=== PATIENT | female | born 1940 | race Caucasian/White ===

== ENCOUNTER → 2016-09-27 | Outpatient (CLI) | payer BC, OTHER ==
[~2016-09-27] MED LIST: ADVAIR INHALER INH; ALBU18002 PO; ALFALFA PO; AMLO-114 PO; ASCA500 PO; ASPEC81 PO; ASPI-435 PO; ASTNS; ATOR10TA88 PO; B-COCAP2 PO; BECL1AER5 NAE; CADUET PO; CALC-214 PO; CALCIUM/MAG PO; CAYENNE PEPPER PO; CHOL20009 PO; CLC/300 PO; CLR10 PO; ERGO1CAP35 PO; FISHOIL PO; GARL10007 PO; GARLIC PO; GLUCOSAMINE CHOND PO; HERB LAX PO; HYDC25 PO; HYZ/50125; LECITHIN PO; LIDO5DIS10 TD; LOSA100T65 PO; METO50TA7 PO; MULT-188 PO; MULT-506 PO; NITR0.4S UT; NITROQUICK SL; NXM/40 PO; PAPAYA ENZYME PO; POLY1DRO2 OP; PRAS1CAP3 PO; PRED10TA PO; PROB1CAP41 PO; PROVENTIL INHALER INH; PTDOPS OP; QVRINH80 INH; SNG10 PO; TPRSR100 PO; VERAMYST NASAL SPRAY NAE; VITA400C15 PO; VITACAP26 PO; ZINC PO; [UNRECOGNIZED DRUG - OTHER] PO; [UNRECOGNIZED DRUG - OTHER] PO; [UNRECOGNIZED DRUG - OTHER] PO; [UNRECOGNIZED DRUG - OTHER] PO
--- NOTE | 2016-09-27 11:40 | DIAGNOSTIC IMAGING REPORT ---
LUMBAR SPINE 5 VIEWS HISTORY: M81.0 [id number] Vitamin D [id number] Mechanical low COMPARISON: None. FINDINGS: There is no fracture. There is 4 mm of anterolisthesis of L4 on L5. Mild disc space narrowing at L2-L3, L3-L4, and L4-L5. Moderate facet degenerative changes within the lower lumbar spine. The sacrum appears intact. The bones are osteopenic. IMPRESSION: 1. No acute fracture within the lumbar spine. 2. Diffuse osteopenia. 3. Degenerative changes as described above. 4. Grade I anterolisthesis of L4 and L5. Electronically signed by: Azar Mensah M.D. 09/27/2016 11:38 AM Dictated Date/Time: 09/27/2016 11:35 AM
== END | disposition home or self-care (01) ==
LOC: C.RAD1850 10:34
PROVIDERS: ATTEND Internal Medicine Rheumatology
DX: M81.0 Age-related osteoporosis without current pathological fracture (principal); E55.9 Vitamin D deficiency, unspecified; M54.5 Low back pain; M85.88 Other specified disorders of bone density and structure, other site; M43.16 Spondylolisthesis, lumbar region

== ENCOUNTER → 2016-10-30 | Outpatient (CLI) | payer BC, OTHER ==
--- NOTE | 2016-10-30 16:45 | MAMMOGRAPHY REPORT ---
BILATERAL DIGITAL SCREENING MAMMOGRAM WITH CAD: 10/30/2016 CLINICAL HISTORY: Routine screening. Patient has no complaints. TECHNIQUE: Current study was also evaluated with a Computer Aided Detection (CAD) system. Bilatera l CC and MLO views were obtained. COMPARISON: Comparison is made to exams dated: 10/26/2015 mammogram, 10/04/2014 mammogram, 10/01/2013 mammogram, 09/30/2012 mammogram, 09/24/2011 mammogram, and 08/28/2010 mammogram - [facility]. BREAST COMPOSITION: There are scattered areas of fibroglandular density in both breasts. FINDINGS: No suspicious masses, calcifications, or areas of architectural distortion are noted in e ither breast. There has been no significant interval change compared to prior exams. Scattered bila teral benign appearing calcifications are not significantly changed. Small benign-appearing right b reast masses are also stable. IMPRESSION: ACR BI-RADS CATEGORY 2: BENIGN There is no mammographic evidence of malignancy. A 1 year screening mammogram is recommended. The p atient will receive written notification of the results. Approximately 10% of breast cancers are not detected with mammography. A negative mammographic repor t should not delay biopsy if a clinically suggestive mass is present. Whit Dupont M.D. /:10/30/2016 13:55:03 Utility Porter: Reyna Montgomery, [facility] letter sent: Normal 1/2 BI-RADS Code: ACR BI-RADS Category 2: Benign
== END | disposition home or self-care (01) ==
LOC: C.MAMM 12:41
PROVIDERS: ATTEND Obstetrics & Gynecology
DX: Z12.31 Encounter for screening mammogram for malignant neoplasm of breast (principal)

== ENCOUNTER → 2016-10-30 | Outpatient (CLI) | payer BC, OTHER | END | disposition home or self-care (01) | LOC: C.MAMM 12:40 | PROVIDERS: ATTEND Internal Medicine Rheumatology | DX: Z12.31 Encounter for screening mammogram for malignant neoplasm of breast (principal); M81.0 Age-related osteoporosis without current pathological fracture; E55.9 Vitamin D deficiency, unspecified; M54.5 Low back pain; Z78.0 Asymptomatic menopausal state ==

== ENCOUNTER → 2016-11-09 | Outpatient (CLI) | payer BC, OTHER | END | disposition home or self-care (01) | LOC: C.LABBC 09:23 | PROVIDERS: ATTEND Family Medicine | DX: M81.0 Age-related osteoporosis without current pathological fracture (principal); E55.9 Vitamin D deficiency, unspecified; M54.5 Low back pain ==

== ENCOUNTER 2017-03-06 05:37 | Inpatient (IN) | payer BC, OTHER ==
[~2017-03-06] VITALS: Ht 157.5 cm; Wt 81.9 kg
[~2017-03-06 05:37] MED LIST changes: -ALBU18002 PO; -AMLO-114 PO; -ASPI-435 PO; -ATOR10TA88 PO; -BECL1AER5 NAE; -CALC-214 PO; -CHOL20009 PO; -CLC/300 PO; -GARL10007 PO; -LOSA100T65 PO; -MULT-188 PO; -MULT-506 PO; -NITR0.4S UT; -NXM/40 PO; -POLY1DRO2 OP; -PRAS1CAP3 PO; -PROB1CAP41 PO; -PTDOPS OP; -TPRSR100 PO; -VITACAP26 PO
[2017-03-06 06:15] LABS: HEMATOCRIT 35.1 % (37-47); MEAN CELL VOLUME 91.9 fL (80-100); MEAN CORPUSCULAR HEMOGLOBIN 30.9 pg (25-34); MEAN CORPUSCULAR HGB CONC 33.6 g/dl (32-36); MEAN PLATELET VOLUME 10.4 fL (7.4-10.4); PLATELET COUNT 270 K/uL (130-400); RED BLOOD COUNT 3.82 M/uL (4.2-5.4); WHITE BLOOD COUNT 6.28 K/uL (4.8-10.8)
[2017-03-06] MEDS ORDERED: AMLO-114 PO (06:18)
[2017-03-06] MEDS ORDERED: ASPI-435 PO (06:18)
[2017-03-06] MEDS ORDERED: CALC-214 PO (06:21)
[2017-03-06] MEDS ORDERED: ATOR10TA82 PO (06:21)
[2017-03-06 06:22] LABS: BUN/CREATININE RATIO 32.5 (10-20); CREATININE 0.71 mg/dl (0.60-1.20); POTASSIUM 4.1 mmol/L (3.5-5.1)
[2017-03-06] MEDS ORDERED: CLC/300 PO (06:23)
[2017-03-06] MEDS ORDERED: GARL10007 PO (06:25)
[2017-03-06] MEDS ORDERED: PRAS1CAP3 PO (06:25)
[2017-03-06] MEDS ORDERED: LOSA100T65 PO (06:25)
[2017-03-06] MEDS ORDERED: MULT-506 PO (06:26)
[2017-03-06] MEDS ORDERED: TPRSR100 PO (06:26)
[2017-03-06] MEDS ORDERED: NITR0.4S UT (06:28)
[2017-03-06] MEDS ORDERED: NXM/40 PO (06:28)
[2017-03-06] MEDS ORDERED: ALBU18002 PO (06:30)
[2017-03-06] MEDS ORDERED: MULT-188 PO (06:30)
[2017-03-06] MEDS ORDERED: PTDOPS OP (06:30)
[2017-03-06] MEDS ORDERED: PROB1CAP41 PO (06:33)
[2017-03-06] MEDS ORDERED: POLY1DRO2 OP (06:33)
[2017-03-06] MEDS ORDERED: BECL1AER5 NAE (06:33)
[2017-03-06] MEDS ORDERED: VITACAP26 PO (06:33)
[2017-03-06] MEDS ORDERED: CHOL20009 PO (06:33)
--- NOTE | 2017-03-06 06:37 | EMERGENCY ROOM VISIT NOTE ---
History Report prepared by Nadia: Rustam Young Under the Supervision of: Dr. Rimma Shea D.O. First contact with patient: 05:41 Chief Complaint: RECTAL BLEEDING Stated Complaint: RECTAL BLEED Nursing Triage Summary: Pt reports having a colonoscopy one week prior. Pt reports having constipation problems and takes colax and herblax. Pt's physician Dr Figueroa instructed patient not to take the herblax because he had a patient with complications from that medication. Tonight patient had bright red blood in her stool. Then around 5am pt reports toilet was all bood and no stool. At that time patient reports feeling weak and diaphoretic. Denies pain. History of Present Illness The patient is a 76 year old female who presents to the Emergency Room with complaints of rectal bleeding occurring today. The patient noticed some blood in her stool earlier today which worsened over time. The patient had been having abdominal bloating for the past month. She also reports changes in stool size. She did not have any rectal bleeding at the time. About a week ago, the patient had the colonoscopy which showed a small polyp, diverticulosis, a blood vessel was cauterized. This week, she started eating foods such as wheat, and chocolate covered raisins. Today, she started noticing some dark blood with her stool and she had an increased frequency of bowel movements. About an hour ago, the patient started only passing blood from her rectum. She is unsure about any blood clots. She also reports being pale, weak, and diaphoretic. She noted the rectal bleeding would worsen with lying down and would resolve with sitting up. The patient denies fevers, chills, abdominal pain, or any other complaints. Source of History: patient Onset: today Position: other (global) Quality: other (rectal bleeding) Timing: other (persistent) Associated Symptoms: + diaphoresis, + weakness, No fevers, No chills, No abdominal pain Review of Systems See HPI for pertinent positives & negatives. A total of 10 systems reviewed and were otherwise negative. Past Medical & Surgical Medical Problems: (1) Low back pain Surgical Problems: (1) Hx of colonoscopy Family History Diabetes mellitus Social History Smoking Status: Never Smoker Marital Status: Occupation Status: retired Current/Historical Medications Scheduled Amlodipine (Norvasc), 10 MG PO DAILY Aspirin (Aspirin 81), 81 MG PO DAILY Atorvastatin (Lipitor), 10 MG PO HS Beclomethasone Dipropionate (N (Qnasl), 1 SPRY TAMARA DAILY Calcium W/ Magnesium (Calcium & Magnesium), 1,200 MG PO DAILY Cholecalciferol (Vitamin D), 6,000 UNIT PO DAILY Esomeprazole Magnesium (Nexium), 40 MG PO DAILY Garlic (Garlic), 5,000 MG PO UD Losartan Potassium (Cozaar), 100 MG PO DAILY Metoprolol Succinate (Toprol Xl), 100 MG PO DAILY Multiple Vitamins W/ Minerals (Ocuvite), 2 TABS PO DAILY Multivitamin (Multivitamin), 2 TAB PO DAILY Olopatadine Hydrochloride (Pataday), 1 DROPS OP DAILY Polyethylene Glycol-Propylene (Systane Gel), OP UD Prasterone (Dhea) (Dhea), 10 MG PO DAILY Probiotic Product (Probiotic Daily), 1 CAP PO DAILY Vitamins C & E (Vitamin C), 2 CAP PO TID Scheduled PRN Albuterol Sulfate (Proair Respiclick), 2 SPRAYS PO QID PRN for SOB/Wheezing Clindamycin HCl (Clindamycin HCl), 2 CAP PO UD PRN for 1hr prior to dental appt Nitroglycerin (Nitrostat), 0.4 MG UT UD PRN for Chest Pain Allergies Coded Allergies: Vitamin E (Verified Allergy, Intermediate, BURNING RASH WITH TOPICAL, 2/5/ 10) Clavulanic Acid (Verified Adverse Reaction, Mild, DIARRHEA, 2/5/10) Penicillins (Verified Adverse Reaction, Mild, DIARRHEA, 2/5/10) Alendronate (Verified Adverse Reaction, Unknown, NAUSEA;DIZZY;HEADACHE, 2/ 5/10) Physical Exam Vital Signs Date Time Temp Pulse Resp B/P (MAP) Pulse Ox O2 Delivery O2 Flow Rate FiO2 03/06/17 07:30 96 Room Air 03/06/17 07:28 69 17 121/81 96 Room Air 03/06/17 05:52 68 03/06/17 05:43 36.5 69 17 125/71 95 Room Air Physical Exam HEENT: Head - normocephalic and atraumatic Pupils are equal, round, and reactive to light. Extraocular eye muscles are intact, and sclera are anicteric. Nose - moist nasal mucosa without discharge. Mouth - moist buccal mucosa. Oropharynx is nonerythematous and there is no tonsillar exudate or edema noted. Neck: Supple; no JVD, nuchal rigidity, cervical lymphadenopathy, or auscultated bruits. Heart: Regular rate and rhythm. There is a normal S1 and S2 with no murmurs, clicks, or gallops appreciated. Lungs: Clear to auscultation bilaterally with no wheezes, rales, or rhonchi. Abdomen: Soft, completely nontender, nondistended, with good bowel sounds. There are no palpable pulsatile masses or hepatosplenomegaly. There is no guarding, rigidity, or rebound noted. Rectal: Dark colored melena. No obvious hemorrhoids Extremities: No evidence of cyanosis, clubbing, or edema. There are easily palpable peripheral pulses. Skin: warm and dry with good turgor and no rashes. Medical Decision & Procedures Laboratory Results Laboratory results per my review. Medications Administered Medications (Trade) Dose Ordered Sig/Mehul Route Start Time Stop Time Status Last Admin Dose Admin Sodium Chloride 1,000 ml @ 100 mls/hr Q10H IV 03/06/17 07:44 04/05/17 07:43 03/07/17 13:29 100 MLS/HR ED Course 0541: Past medical records reviewed. The patient was evaluated in room A10. A complete history and physical exam was performed. An IV lock was initiated and labs were drawn as above. 0636: I reevaluated the patient. She did not have a bowel movement yet. 0650: Upon reevaluation, I discussed findings and results with her. The patient was able to access her previous lab results. On January 27, she had a hemoglobin of 14.4. She verbalized agreement of the treatment plan. The patient will be evaluated for further management and care. Her hemoglobin has dropped by 3 g. 0704: [facility] the [facility] Medical Decision The patient presents to the Emergency Room with complaints of rectal bleeding. Differential diagnosis includes but is not limited to Upper GI bleeding, lower GI bleeding, hemorrhoidal bleeding. Her labs showed BUN 23, creatinine 0.7, glucose 138, white blood cell count of 6.2, hemoglobin 11.8. I attest that I have personally reviewed the patient's current medication list. Patient was found to have normal blood pressure on screening and does not require follow-up. The patient presents to the emergency department with rectal bleeding. She recently underwent a colonoscopy with which showed a polyp and a blood vessel which required cauterization. The patient developed sudden acute onset of rectal bleeding tonight. Her hemoglobin has dropped by 3 g in the past 1 month. The patient is hemodynamically stable at this time. [facility] for further management. Consults Time Called: [phone] Consulting Physician: [facility] Returned Call: [phone] I discussed the patient's case with Dr. Haq, from [facility]. Impression Primary Impression: GI bleed Additional Impression: Anemia Scribe Attestation The scribe's documentation has been prepared under my direction and personally reviewed by me in its entirety. I confirm that the note above accurately reflects all work, treatment, procedures, and medical decision making performed by me. Departure Information Dispostion Being Evaluated By Hospitalist Referrals Mario Figueroa M.D. (PCP) Patient Instructions My [facility] Problem Qualifiers
[2017-03-06 07:30] VITALS: O2SAT 96; Ht 157.5 cm; Wt 81.9 kg
[2017-03-06] MEDS ORDERED: SODIUM CHLORIDE 0.45% 1000ML 1,000 ML IV SCH (07:44)
[2017-03-06] MEDS ORDERED: MAGNESIUM HYDROXIDE SUSP 30 ML UDC PO PRN (07:45)
[2017-03-06] MEDS ORDERED: ALUMINUM/MAGNESIUM/SIMETH (MAALOX MAX) 30 ML UDC PO PRN (07:45)
[2017-03-06] MEDS ORDERED: HydrALAZINE HCL 20 MG/ML VIAL IV. PRN (07:45)
[2017-03-06] MEDS ORDERED: ONDANSETRON INJ 2 MG/ML 2 ML VIAL IV PRN (07:45)
[2017-03-06] MEDS ORDERED: ACETAMINOPHEN 325 MG TAB PO PRN (07:45)
[2017-03-06] MEDS ORDERED: NITROGLYCERIN 0.4 MG SL PER TAB CHARGE SL PRN (07:45)
[2017-03-06] MEDS ORDERED: POLYETHYLENE (MIRALAX) 17 GM PACK PO PRN (07:45)
--- NOTE | 2017-03-06 08:09 | History and Physical ---
History & Physical Date & Time of Service: Mar 06, 2017 at 07:53 Chief Complaint: Rectal Bleed Primary Care Physician: Mario Figueroa M.D. History of Present Illness Source: patient, family (- at bedside), clinic records, hospital records Patient is a pleasant 76 y/o female, with PMHx of HTN, hyperlipidemia, CAD s/p BRIAN to LAD in 2006, and GERD, who presented to the ED because of rectal bleeding /melena that began last evening. According to the patient, last evening before bed she noticed bright red blood in her rectum. Shortly after she went to the bathroom and noticed black/red stool and bright red blood. The patient had multiple BMs throughout the night which progressively had less stool and more obvious blood. Last episode of noticeable blood was around 530 this AM prior to arriving to the ED via EMS. She admits to lightheadedness/dizziness, weakness, and diaphoresis as the night progressed. Patient's last meal was 03/05 around 2130. She denies having anything like this in the past. Patient had a colonoscopy by Dr. Shafer on 02/26 due to bloating and changing in stool shape/ consistency. She was found to have a small polyp (has not heard of pathology), blood vessel cauterization, and diverticular disease. She admits to GERD and states she had an EGD in 2011. She is to take Nexium over the counter, but does not take it. Patient denies any fever, chills, sweats, vision changes, CP, palpitations, edema, SOB, wheezing, cough, abdominal pain, nausea, vomiting, diarrhea, urinary symptoms, numbness/tingling, muscle/joint pain, anxiety/ depression, or new skin discoloration/changes. Past Medical/Surgical History Medical Problems: 1. HTN 2. Hyperlipidemia 3. CAD s/p BRIAN to LAD in 2006 4. GERD 5. Diverticular disease Surgical Problems: 1. Colonoscopy 02/26/17 2. EGD in 2011 3. Cataract surgery 4. D&C x3 due to miscarriages 5. Left total knee replacement 6. Tonsillectomy Family History Diabetes mellitus Social History Smoking Status: Never Smoker Marital Status: Occupational Status: retired Immunizations History of Influenza Vaccine: Yes History of Tetanus Vaccine?: Yes History of Pneumococcal: Yes History of Hepatitis B Vaccine: No Multi-Drug Resistant Organisms History of MDRO: No Allergies Coded Allergies: Vitamin E (Verified Allergy, Intermediate, BURNING RASH WITH TOPICAL, ) Clavulanic Acid (Verified Adverse Reaction, Mild, DIARRHEA, 10/21/09) Penicillins (Verified Adverse Reaction, Mild, DIARRHEA, 10/21/09) Alendronic Acid (Verified Adverse Reaction, Unknown, NAUSEA;DIZZY;HEADACHE , 10/21/09) Uncoded Allergies: BETALACTAMASEIN (Adverse Reaction, Mild, DIARRHEA, 10/21/09) Home Medications Scheduled Amlodipine (Norvasc), 10 MG PO DAILY Aspirin (Aspirin 81), 81 MG PO DAILY Atorvastatin (Lipitor), 10 MG PO HS Beclomethasone Dipropionate (N (Qnasl), 1 SPRY TAMARA DAILY Calcium W/ Magnesium (Calcium & Magnesium), 1,200 MG PO DAILY Cholecalciferol (Vitamin D), 6,000 UNIT PO DAILY Esomeprazole Magnesium (Nexium), 40 MG PO DAILY Garlic (Garlic), 5,000 MG PO UD Losartan Potassium (Cozaar), 100 MG PO DAILY Metoprolol Succinate (Toprol Xl), 100 MG PO DAILY Multiple Vitamins W/ Minerals (Ocuvite), 2 TABS PO DAILY Multivitamin (Multivitamin), 2 TAB PO DAILY Olopatadine Hydrochloride (Pataday), 1 DROPS OP DAILY Polyethylene Glycol-Propylene (Systane Gel), OP UD Prasterone (Dhea) (Dhea), 10 MG PO DAILY Probiotic Product (Probiotic Daily), 1 CAP PO DAILY Vitamins C & E (Vitamin C), 2 CAP PO TID Scheduled PRN Albuterol Sulfate (Proair Respiclick), 2 SPRAYS PO QID PRN for SOB/Wheezing Clindamycin HCl (Clindamycin HCl), 2 CAP PO UD PRN for 1hr prior to dental appt Nitroglycerin (Nitrostat), 0.4 MG UT UD PRN for Chest Pain Physical Exam Vital Signs Date Time Temp Pulse Resp B/P (MAP) Pulse Ox O2 Delivery O2 Flow Rate FiO2 03/06/17 07:28 69 17 121/81 96 Room Air 03/06/17 05:52 68 03/06/17 05:43 36.5 69 17 125/71 95 Room Air General Appearance: no apparent distress, + obese Head: normocephalic, atraumatic Eyes: normal inspection, PERRL ENT: hearing grossly normal Neck: supple Respiratory/Chest: lungs clear, no respiratory distress, no accessory muscle use Cardiovascular: regular rate, rhythm Abdomen/GI: normal bowel sounds, non tender, soft Extremities/Musculoskelatal: no calf tenderness, no pedal edema Neurologic/Psych: alert, normal mood/affect, oriented x 3 Skin: normal color, warm/dry, no rash Diagnostics Laboratory Results Results Past 24 Hours Test 03/06/17 05:55 Range/Units White Blood Count 6.28 4.8-10.8 K/uL Red Blood Count 3.82 4.2-5.4 M/uL Hemoglobin 11.8 12.0-16.0 g/dL Hematocrit 35.1 37-47 % Mean Corpuscular Volume 91.9 80-100 fL Mean Corpuscular Hemoglobin 30.9 25-34 pg Mean Corpuscular Hemoglobin Concent 33.6 32-36 g/dl RDW Standard Deviation 41.9 36.4-46.3 fL RDW Coefficient of Variation 12.4 11.5-14.5 % Platelet Count 270 130-400 K/uL Mean Platelet Volume 10.4 7.4-10.4 fL Sodium Level 142 136-145 mmol/L Potassium Level 4.1 3.5-5.1 mmol/L Chloride Level 110 98-107 mmol/L Carbon Dioxide Level 24 21-32 mmol/L Anion Gap 8.0 3-11 mmol/L Blood Urea Nitrogen 23 7-18 mg/dl Creatinine 0.71 0.60-1.20 mg/dl Est Creatinine Clear Calc Drug Dose 70.7 ml/min Estimated GFR () 97.3 Estimated GFR (Non- 83.9 BUN/Creatinine Ratio 32.5 10-20 Random Glucose 138 70-99 mg/dl Calcium Level 8.0 8.5-10.1 mg/dl Impression Assessment and Plan Patient is a pleasant 76 y/o female, with PMHx of HTN, hyperlipidemia, CAD s/p BRIAN to LAD in 2006, and GERD, who presented to the ED because of rectal bleeding /melena that begin last evening. Anemia, secondary to GI bleed: - Admit to tele for cardiac monitoring - Trend H&H q6 hrs- hgb at admission= 11.8 - IV Protonix BID - IV NSS @ 100 ml/hr - Type and screen - NPO - Consult GI, appreciate recommendations- patient follows w/ Dr. Shafer HTN: - Continue Amlodipine 5 mg and Losartan 100 mg daily - IV 10 mg Hydralazine PRN SBP >180 and DBP >100 while NPO Hyperlipidemia: Lipitor 10 mg HS CAD s/p BRIAN to LAD in 2006: - Continue Metoprolol 100 mg daily - Patient follows w/ Dr. Pérez GI Prophylaxis: Protonix, Maalox PRN, IV Zofran PRN, Colace and/or Milk of Mag PRN DVT Prophylaxis: TEDs/SCDs; chemical therapy contraindicated due to GI bleed Code Status: LEVEL I, FULL Dispo: From home, lives w/ - no discharge needs anticipated Level of Care Telemetry Resuscitation Status FULL RESUSCITATION VTE Prophylaxis VTE Risk Assessment Done? Y/N: Yes Risk Level: Moderate Given or contraindicated: T.E.D. Stockings, SCD's, Contraindicated
[2017-03-06] MEDS ORDERED: LOSARTAN POTASSIUM 50 MG TAB PO SCH (09:00)
[2017-03-06] MEDS ORDERED: METOPROLOL SUCC 50MG EXT REL TAB PO SCH (09:00)
[2017-03-06] MEDS ORDERED: AMLODIPINE BESYLATE 5 MG TAB PO SCH (09:00)
[2017-03-06] MEDS ORDERED: MULTIVITAMIN TAB PO SCH (09:00)
[2017-03-06] MEDS ORDERED: CEROVITE ADV FORMULA TAB PO SCH (09:00)
[2017-03-06 09:27] VITALS: O2SAT 97
[2017-03-06 09:35] VITALS: BP 154/80; PULSE 76; TEMP 36.6; O2SAT 97
[2017-03-06] MEDS: SODIUM CHLORIDE 0.9% 1000ML 1,000 ML IV SCH ×2 (10:21→19:31)
[2017-03-06] MEDS ORDERED: NURSING VERBAL MED ORDER ONE (10:30)
[2017-03-06 11:05] VITALS: BP 128/68; PULSE 66; TEMP 36.6; O2SAT 95
[2017-03-06] MEDS: PANTOprazole INJ 40 MG in SYRINGE 0 ML IV SCH ×2 (11:15→22:23)
[2017-03-06 13:14] LABS: HEMATOCRIT 35.3 % (37-47)
[2017-03-06 15:00] VITALS: BP 130/79; PULSE 79; TEMP 37; O2SAT 96
[2017-03-06 18:26] LABS: HEMATOCRIT 31.7 % (37-47)
[2017-03-06 20:10] VITALS: BP 121/57; PULSE 71; TEMP 36.4; O2SAT 95
[2017-03-06] MEDS: LOSARTAN POTASSIUM 50 MG TAB PO SCH (22:23)
[2017-03-06] MEDS: ATORVASTATIN 10 MG TAB PO SCH (22:24)
[2017-03-06] MEDS: CEROVITE ADV FORMULA TAB PO SCH (22:24)
[2017-03-06] MEDS: METOPROLOL SUCC 50MG EXT REL TAB PO SCH (22:25)
[2017-03-06] MEDS: AMLODIPINE BESYLATE 5 MG TAB PO SCH (22:25)
--- NOTE | 2017-03-06 22:25 | GASTROINTESTINAL CONSULTATION ---
DATE OF CONSULTATION: 03/06/2017 This is a GI consultation for hematochezia. HISTORY OF PRESENT ILLNESS: Mrs. Mota is a 76-year-old white female, who underwent colonoscopy on 02/26/2017 by me at [facility]. At that time, she had a nonbleeding AVM and underwent a bipolar cautery, a polyp which revealed a tubular adenoma, left-sided diverticulosis without diverticulitis. She did well up until last evening, at approximately 10:00 when she began to develop a sense of some mild cramping and stool mixed with blood. This continued through the night every 20-30 minutes, where the intensity of the bleeding became more evident, was bright red blood in nature and at one point stool could no longer be identified. This continued up until approximately 5:00 a.m. this morning, at which point she contacted EMS and was presented to the Emergency Room for evaluation of bleeding. The patient denies any fever or chills, had no changes in her bowel habits prior to last evening and has not had any bleeding since arriving at the Emergency Room. At a point of time, at home, she was feeling lightheaded, although did not pass out. LABORATORY STUDIES: On admission; show that her hemoglobin was 11.8 at 5:55 this morning and at approximately 1:00 p.m. this afternoon it was 11.6. Her white count was normal at 6.3 and platelets were normal at 270,000. Serum chemistry; BUN and creatinine were 23 and 0.7. Potassium was 4.1. PAST MEDICAL HISTORY: The patient denied any hematemesis, coffee-ground emesis or upper abdominal pain and has no prior history of peptic ulcer disease. She did use 1 Aleve tablet over the past week and takes a baby aspirin, but chronic or frequent use of NSAIDs is by way of ibuprofen or naproxen and is not reported. PAST MEDICAL HISTORY: Includes; hypertension, hyperlipidemia, coronary artery disease, GERD and diverticular disease. She had an upper endoscopy in 2011. Has had prior cataract surgery, total knee replacement on the left side and tonsillectomy. FAMILY HISTORY: Significant for diabetes. SOCIAL HISTORY: The patient denies tobacco or alcohol use. She is , retired and has children. REVIEW OF SYSTEMS: Otherwise noncontributory based on 14-point exam except for as mentioned above. There is no family history of colorectal cancer or inflammatory bowel disease. ALLERGIES: INCLUDE; VITAMIN E, CLAVULANIC ACID WHICH PRODUCES DIARRHEA, PENICILLIN AND ALENDRONIC ACID WHICH PRODUCES NAUSEA. HOME MEDICATIONS: Include; amlodipine, aspirin, atorvastatin, beclomethasone nasal spray, vitamin D, Nexium, garlic, losartan, Lopressor, MVI probiotic and vitamin C. PHYSICAL EXAMINATION: VITAL SIGNS: On admission her vital signs; afebrile at 36.5, blood pressure 125/71, respirations 17, pulse 69 and pulse ox 95% on room air. GENERAL: The patient is awake, alert and oriented x3, accompanied by her . The patient is resting comfortably in bed. HEENT: Sclerae are anicteric, conjunctiva moist. Oral mucosa is moist. HEART: Normal S1, S2. LUNGS: Clear to auscultation without rales, rhonchi or wheezes. ABDOMEN: There are no abdominal bruits or masses. I do not appreciate abdominal tenderness, rebound, guarding, evidence of shifting dullness or ascites. EXTREMITIES: Without clubbing, cyanosis or edema. RECTAL: Deferred at this time. Blood work as described above with a BUN and creatinine of 23 and 0.7. Potassium is 4.1. IMPRESSION: The patient with acute onset of bleeding that appears to be mostly bright red blood and intensified overnight, although since her presentation to the Emergency Room she has not had any further rectal bleeding or stool output. There is no abdominal pain. At the present time, her hemoglobin seems stable, although this needs to be watched carefully with hemoglobin every 12 hours. Empiric PPI is reasonable. We will observe stool output, her clinical presentation and vital signs. If her hemoglobin precipitously drops or if there is evidence of ongoing bloody output, then it may be prudent to begin a bowel prep with intentions to re-interrogate the colon. The differential for this includes unroofing of an eschar as it has been approximately 8 days since her arteriovenous malformation fulguration and polyp removal. In addition, diverticular bleeding or bleeding from the polypectomy site may also be possibilities. We will continue to follow with you. If bleeding occurs overnight, then we will plan for a bowel prep and plans for colonoscopy later on afternoon. All questions were answered. A clear liquid diet (non-red beverages) is reasonable as long as there is no abdominal pain or development of recurrent gastrointestinal bleeding at which point bowel prep may be necessary. All questions were answered. MTDD
[2017-03-07] VITALS (11 sets, daily range): BP systolic 112–148; BP diastolic 53–80; PULSE 62–98; TEMP 36.3–37.1; O2SAT 93–98
[2017-03-07] MEDS: SODIUM CHLORIDE 0.9% 1000ML 1,000 ML IV SCH ×3 (04:16→23:18)
[2017-03-07 07:35] LABS: HEMATOCRIT 31.3 % (37-47); MEAN CELL VOLUME 92.6 fL (80-100); MEAN CORPUSCULAR HEMOGLOBIN 30.8 pg (25-34); MEAN CORPUSCULAR HGB CONC 33.2 g/dl (32-36); MEAN PLATELET VOLUME 10.3 fL (7.4-10.4); PLATELET COUNT 253 K/uL (130-400); RED BLOOD COUNT 3.38 M/uL (4.2-5.4); WHITE BLOOD COUNT 5.43 K/uL (4.8-10.8)
[2017-03-07 08:29] LABS: CALCIUM 7.8 mg/dl (8.5-10.1); CREATININE 0.71 mg/dl (0.60-1.20); MAGNESIUM 2.5 mg/dl (1.8-2.4)
[2017-03-07] MEDS: PANTOprazole INJ 40 MG in SYRINGE 0 ML IV SCH ×2 (08:31→21:35)
[2017-03-07] MEDS ORDERED: LAVAGE SOLUTION 4000ML PO SCH (10:00)
--- NOTE | 2017-03-07 11:03 | Hospitalist Progress Note ---
Hospitalist Progress Note Date of Service Mar 07, 2017. Subjective Pt evaluation today including: conversation w/ patient, conversation w/ family (- at bedside), physical exam, chart review, lab review, review of inpatient medication list Voiding: no voiding problems, no incontinence Patient states she is feeling well. NPO pending colonoscopy today. Patient started passing large amounts of blood clots again this AM. +abdominal bloating. Patient denies any fever, chills, sweats, lightheadedness, dizziness, vision changes, CP, palpitations, edema, SOB, wheezing, cough, abdominal pain, nausea, vomiting, diarrhea, urinary symptoms, melena, numbness/tingling, weakness, muscle/joint pain, anxiety/depression, or new skin discoloration/changes. Medications Current Inpatient Medications Medications (Trade) Dose Ordered Sig/Mehul Route Start Time Stop Time Status Last Admin Dose Admin Sodium Chloride 1,000 ml @ 100 mls/hr Q10H IV 03/06/17 07:44 04/05/17 07:43 03/07/17 04:16 100 MLS/HR Acetaminophen (Tylenol Tab) 650 mg Q4H PRN PO 03/06/17 07:45 04/05/17 07:44 Al Hydrox/Mg Hydrox/Simethicone (Maalox Max Susp) 15 ml Q4H PRN PO 03/06/17 07:45 04/05/17 07:44 Magnesium Hydroxide (Milk Of Magnesia Susp) 30 ml Q12H PRN PO 03/06/17 07:45 04/05/17 07:44 Ondansetron HCl (Zofran Inj) 4 mg Q6H PRN IV 03/06/17 07:45 04/05/17 07:44 Nitroglycerin (Nitrostat Tab) 0.4 mg UD PRN SL 03/06/17 07:45 04/05/17 07:44 Polyethylene (Miralax Powder Packet) 17 gm DAILY PRN PO 03/06/17 07:45 04/05/17 07:44 Pantoprazole Sodium 40 mg/ Syringe 10 ml @ 5 mls/min DAILY@,21 IV 03/06/17 10:30 04/05/17 10:29 03/07/17 08:31 5 MLS/MIN Atorvastatin Calcium (Lipitor Tab) 10 mg HS PO 03/06/17 21:00 04/05/17 20:59 03/06/17 22:24 10 MG Hydralazine HCl (HydrALAZINE INJ) 10 mg Q6H PRN IV. 03/06/17 07:45 04/05/17 07:44 Multivitamins/ Minerals (Multivitamin W/ Minerals Tab) 2 tab HS PO 03/06/17 21:00 04/05/17 20:59 03/06/17 22:24 2 TAB Amlodipine Besylate (Norvasc Tab) 5 mg HS PO 03/06/17 21:00 04/05/17 20:59 03/06/17 22:25 5 MG Losartan Potassium (coZAAR TAB) 100 mg HS PO 03/06/17 21:00 04/05/17 20:59 03/06/17 22:23 100 MG Metoprolol Succinate (Toprol Xl Tab) 100 mg HS PO 03/06/17 21:00 04/05/17 20:59 03/06/17 22:25 100 MG Polyethylene Glycol/ Electrolytes (Golytely Soln) 16 dose 1000 PO 03/07/17 10:00 03/07/17 16:00 03/07/17 10:14 16 DOSE Objective Vital Signs Date Time Temp Pulse Resp B/P (MAP) Pulse Ox O2 Delivery O2 Flow Rate FiO2 03/07/17 10:14 Room Air 03/07/17 08:00 Room Air 03/07/17 07:02 37.0 66 18 145/78 (100) 95 Room Air 03/07/17 04:05 Room Air 03/07/17 03:47 36.9 62 18 136/74 (94) 97 Room Air 03/07/17 00:05 Room Air 03/07/17 00:00 36.5 69 19 140/72 (94) 94 Room Air 03/06/17 20:10 36.4 71 18 121/57 (78) 95 Room Air 03/06/17 20:00 Room Air 03/06/17 16:00 Room Air 03/06/17 15:00 37.0 79 18 130/79 (96) 96 Room Air 03/06/17 12:00 Room Air 03/06/17 11:05 36.6 66 18 128/68 (88) 95 Room Air Physical Exam General Appearance: no apparent distress, + obese Eyes: normal inspection, PERRL ENT: hearing grossly normal Neck: supple Respiratory/Chest: lungs clear, no respiratory distress, no accessory muscle use Cardiovascular: regular rate, rhythm Abdomen: normal bowel sounds, non tender, soft Extremities: no pedal edema, no calf tenderness Neurologic/Psychiatric: alert, normal mood/affect, oriented x 3 Skin: normal color, warm/dry, no rash Laboratory Results Last 24 Hours Test 03/06/17 12:43 03/06/17 18:05 03/07/17 07:03 Hemoglobin 11.6 g/dL 10.3 g/dL 10.4 g/dL Hematocrit 35.3 % 31.7 % 31.3 % White Blood Count 5.43 K/uL Red Blood Count 3.38 M/uL Mean Corpuscular Volume 92.6 fL Mean Corpuscular Hemoglobin 30.8 pg Mean Corpuscular Hemoglobin Concent 33.2 g/dl RDW Standard Deviation 43.1 fL RDW Coefficient of Variation 12.7 % Platelet Count 253 K/uL Mean Platelet Volume 10.3 fL Sodium Level 144 mmol/L Potassium Level 4.0 mmol/L Chloride Level 112 mmol/L Carbon Dioxide Level 26 mmol/L Anion Gap 6.0 mmol/L Blood Urea Nitrogen 13 mg/dl Creatinine 0.71 mg/dl Est Creatinine Clear Calc Drug Dose 69.8 ml/min Estimated GFR () 97.3 Estimated GFR (Non- 83.9 BUN/Creatinine Ratio 19.0 Random Glucose 104 mg/dl Calcium Level 7.8 mg/dl Magnesium Level 2.5 mg/dl Assessment and Plan Patient is a pleasant 76 y/o female, with PMHx of HTN, hyperlipidemia, CAD s/p BRIAN to LAD in 2006, and GERD, who presented to the ED because of rectal bleeding /melena that begin last evening. Anemia, secondary to GI bleed: - Admit to tele for cardiac monitoring- no acute events - Trend H&H- STABLE -- Will recheck H&H this afternoon prior to colonoscopy due to active bleeding restarting - IV Protonix BID - IV NSS @ 100 ml/hr- will d/c once resume diet - Type and screen - NPO- advance diet after colonoscopy per GI recommendations - Consult GI, appreciate recommendations- patient follows w/ Dr. Shafer -- Bowel prep and planning for colonoscopy/EGD this afternoon HTN: - Continue Amlodipine 5 mg and Losartan 100 mg daily - IV 10 mg Hydralazine PRN SBP >180 and DBP >100 while NPO Hyperlipidemia: Lipitor 10 mg HS CAD s/p BRIAN to LAD in 2006: - Continue Metoprolol 100 mg daily - Patient follows w/ Dr. Pérez GI Prophylaxis: Protonix, Maalox PRN, IV Zofran PRN, Colace and/or Milk of Mag PRN DVT Prophylaxis: TEDs/SCDs; chemical therapy contraindicated due to GI bleed Code Status: LEVEL I, FULL Dispo: Discharge to home once medically stable- likely within the next 1 day
[2017-03-07 12:38] LABS: HEMATOCRIT 29.6 % (37-47)
[2017-03-07] MEDS ORDERED: PROPOFOL IV EMULSION 10 MG/ML 20 ML VIAL IV ONE (15:13)
[2017-03-07] MEDS ORDERED: LIDOCAINE HCL 2% 2 ML VIAL (20MG/ML) ONE (15:13)
--- NOTE | 2017-03-07 15:27 | History & Physical Bridge Note ---
H&P Re-Evaluation Bridge Note: I have examined the patient, reviewed the History & Physical and in the interval since the performance of the History & Physical I have noted the following changes of clinical significance: pt developed BRBPR midmorning today. plan for colonoscopy and possible EGD No changes noted
--- NOTE | 2017-03-07 16:10 | GI REPORT ---
Procedure Date: 03/07/2017 3:22 PM Procedure: Colonoscopy Indications: Hematochezia Medicines: Propofol per Anesthesia Complications: No immediate complications. Estimated blood loss: None. Estimated Blood Loss: Estimated blood loss: none. Procedure: Pre-Anesthesia Assessment: - Prior to the procedure, a History and Physical was performed, and patient medications and allergies were reviewed. The patient's tolerance of previous anesthesia was also reviewed. The risks and benefits of the procedure and the sedation options and risks were discussed with the patient. All questions were answered, and informed consent was obtained. Prior Anticoagulants: The patient has taken no previous anticoagulant or antiplatelet agents. ASA Grade Assessment: II - A patient with mild systemic disease. After reviewing the risks and benefits, the patient was deemed in satisfactory condition to undergo the procedure. After I obtained informed consent, the scope was passed under direct vision. Throughout the procedure, the patient's blood pressure, pulse, and oxygen saturations were monitored continuously. The Scope was introduced through the anus and advanced to the terminal ileum, with identification of the appendiceal orifice and IC valve. The colonoscopy was performed without difficulty. The patient tolerated the procedure well. The quality of the bowel preparation was good. Findings: The perianal and digital rectal examinations were normal. Pertinent negatives include normal sphincter tone, no palpable rectal lesions and no anal lesion or abnormality was detected. A localized area of moderately congested and ulcerated mucosa was found in the cecum reflecting prior AVM/cautery site from february 26.. For hemostasis, four hemostatic clips were successfully placed (MR conditional). There was no bleeding during, and at the end, of the procedure. A diffuse area of moderate melanosis was found in the entire colon. The exam was otherwise without abnormality. The terminal ileum appeared normal. No blood seen in TI therfore EGD not necessary. Source of bleeding is most likley from post AVM cautery site in cecum. Small non bleeding visible vessl seen that was successfully clipped. Impression: - Congested and ulcerated mucosa in the cecum. Clips (MR conditional) were placed. - Melanosis in the colon. - The examination was otherwise normal. - The examined portion of the ileum was normal. - No specimens collected. Recommendation: - Advance diet as tolerated. - Continue present medications. - Check hemoglobin daily. MD Dom Castro MD 03/07/2017 4:10:11 PM This report has been signed electronically. Note Initiated On: 03/07/2017 3:22 PM I attest to the content of the Intraoperative Record and orders documented therein, exceptions below
--- NOTE | 2017-03-07 16:32 | Anesthesiology Progress Note ---
Anesthesia Post Op Note Date & Time Mar 07, 2017 at 16:32 Vital Signs Pain Intensity: 0.0 Vital Signs Past 12 Hours Date Time Temp Pulse Resp B/P (MAP) Pulse Ox O2 Delivery O2 Flow Rate FiO2 03/07/17 16:11 69 16 131/64 (86) 98 Room Air 03/07/17 15:56 70 16 121/57 (78) 98 Room Air 03/07/17 14:57 37.3 73 16 120/56 (77) 96 Room Air 03/07/17 14:43 36.8 92 18 117/58 (77) 94 Room Air 03/07/17 12:00 Room Air 03/07/17 11:18 36.7 68 18 133/72 (92) 98 Room Air 03/07/17 10:14 36.8 92 18 117/58 94 Room Air 03/07/17 08:00 Room Air 03/07/17 07:02 37.0 66 18 145/78 (100) 95 Room Air Notes Mental Status: alert / awake / arousable, participated in evaluation Pt Amnestic to Procedure: Yes Nausea / Vomiting: adequately controlled Pain: adequately controlled Airway Patency, RR, SpO2: stable & adequate BP & HR: stable & adequate Hydration State: stable & adequate Anesthetic Complications: no major complications apparent Pt doing well.
[2017-03-07] MEDS: LOSARTAN POTASSIUM 50 MG TAB PO SCH (21:35)
[2017-03-07] MEDS: AMLODIPINE BESYLATE 5 MG TAB PO SCH (21:36)
[2017-03-07] MEDS: METOPROLOL SUCC 50MG EXT REL TAB PO SCH (21:36)
[2017-03-07] MEDS: CEROVITE ADV FORMULA TAB PO SCH (21:36)
[2017-03-07] MEDS: ATORVASTATIN 10 MG TAB PO SCH (21:36)
[2017-03-08 03:50] VITALS: BP 104/62; PULSE 67; TEMP 36.9; O2SAT 97
[2017-03-08 05:59] LABS: HEMATOCRIT 26.8 % (37-47); MEAN CELL VOLUME 92.1 fL (80-100); MEAN CORPUSCULAR HEMOGLOBIN 30.9 pg (25-34); MEAN CORPUSCULAR HGB CONC 33.6 g/dl (32-36); MEAN PLATELET VOLUME 10.1 fL (7.4-10.4); PLATELET COUNT 235 K/uL (130-400); RED BLOOD COUNT 2.91 M/uL (4.2-5.4); WHITE BLOOD COUNT 7.98 K/uL (4.8-10.8)
[2017-03-08 06:37] LABS: BUN/CREATININE RATIO 13.4 (10-20); CREATININE 0.62 mg/dl (0.60-1.20); POTASSIUM 3.6 mmol/L (3.5-5.1)
[2017-03-08 07:02] VITALS: BP 121/65; PULSE 70; TEMP 36.8; O2SAT 98
[2017-03-08] MEDS: PANTOprazole INJ 40 MG in SYRINGE 0 ML IV SCH (08:26)
[2017-03-08] MEDS ORDERED: NURSING VERBAL MED ORDER ONE (08:45)
[2017-03-08] MEDS: PANTOprazole SOD 40 MG TAB PO SCH ×2 (09:22→20:59)
--- NOTE | 2017-03-08 10:27 | Hospitalist Progress Note ---
Hospitalist Progress Note Date of Service Mar 08, 2017. Subjective Pt evaluation today including: conversation w/ patient, conversation w/ family (- at bedside ), physical exam, chart review, lab review, review of inpatient medication list Voiding: no voiding problems, no incontinence Patient states she is feeling well this AM. Denies passing blood since colonoscopy. Clear liquid diet this AM- advance to full for lunch. States Dr. Shafer will not be doing an EGD at this time. Discussed hgb of 9.0 and would like to watch overnight- patient is in agreement Patient denies any fever, chills, sweats, lightheadedness, dizziness, vision changes, CP, palpitations, edema, SOB, wheezing, cough, abdominal pain, nausea, vomiting, diarrhea, urinary symptoms, melena, numbness/tingling, weakness, muscle/joint pain, anxiety/depression, active bleeding, or new skin discoloration/changes. Medications Current Inpatient Medications Medications (Trade) Dose Ordered Sig/Mehul Route Start Time Stop Time Status Last Admin Dose Admin Acetaminophen (Tylenol Tab) 650 mg Q4H PRN PO 03/06/17 07:45 04/05/17 07:44 Al Hydrox/Mg Hydrox/Simethicone (Maalox Max Susp) 15 ml Q4H PRN PO 03/06/17 07:45 04/05/17 07:44 Magnesium Hydroxide (Milk Of Magnesia Susp) 30 ml Q12H PRN PO 03/06/17 07:45 04/05/17 07:44 Ondansetron HCl (Zofran Inj) 4 mg Q6H PRN IV 03/06/17 07:45 04/05/17 07:44 Nitroglycerin (Nitrostat Tab) 0.4 mg UD PRN SL 03/06/17 07:45 04/05/17 07:44 Polyethylene (Miralax Powder Packet) 17 gm DAILY PRN PO 03/06/17 07:45 04/05/17 07:44 Atorvastatin Calcium (Lipitor Tab) 10 mg HS PO 03/06/17 21:00 04/05/17 20:59 03/07/17 21:36 10 MG Hydralazine HCl (HydrALAZINE INJ) 10 mg Q6H PRN IV. 03/06/17 07:45 04/05/17 07:44 Multivitamins/ Minerals (Multivitamin W/ Minerals Tab) 2 tab HS PO 03/06/17 21:00 04/05/17 20:59 03/07/17 21:36 2 TAB Amlodipine Besylate (Norvasc Tab) 5 mg HS PO 03/06/17 21:00 04/05/17 20:59 03/07/17 21:36 5 MG Losartan Potassium (coZAAR TAB) 100 mg HS PO 03/06/17 21:00 04/05/17 20:59 03/07/17 21:35 100 MG Metoprolol Succinate (Toprol Xl Tab) 100 mg HS PO 03/06/17 21:00 04/05/17 20:59 03/07/17 21:36 100 MG Pantoprazole Sodium (Protonix Tab) 40 mg BID PO 03/08/17 09:00 04/07/17 08:59 03/08/17 09:22 40 MG Objective Vital Signs Date Time Temp Pulse Resp B/P (MAP) Pulse Ox O2 Delivery O2 Flow Rate FiO2 03/08/17 08:00 Room Air 03/08/17 07:02 36.8 70 18 121/65 (83) 98 Room Air 03/08/17 04:00 Room Air 03/08/17 03:50 36.9 67 18 104/62 (76) 97 Room Air 03/08/17 00:00 Room Air 03/07/17 23:40 37.1 98 18 112/53 (72) 93 Room Air 03/07/17 20:00 Room Air 03/07/17 19:43 37.1 79 16 148/73 (98) 96 Room Air 03/07/17 17:47 36.3 79 18 127/70 (89) 96 Room Air 03/07/17 17:16 36.6 75 18 127/77 (94) 97 Room Air 03/07/17 17:00 Room Air 03/07/17 16:46 36.7 70 18 130/80 (97) 97 Room Air 03/07/17 16:26 71 16 136/68 (90) 96 Room Air 03/07/17 16:11 69 16 131/64 (86) 98 Room Air 03/07/17 15:56 70 16 121/57 (78) 98 Room Air 03/07/17 14:57 37.3 73 16 120/56 (77) 96 Room Air 03/07/17 14:43 36.8 92 18 117/58 (77) 94 Room Air 03/07/17 12:00 Room Air 03/07/17 11:18 36.7 68 18 133/72 (92) 98 Room Air Physical Exam General Appearance: no apparent distress, + obese Eyes: normal inspection, PERRL ENT: hearing grossly normal Neck: supple Respiratory/Chest: lungs clear, no respiratory distress, no accessory muscle use Cardiovascular: regular rate, rhythm Abdomen: normal bowel sounds, non tender, soft Extremities: no pedal edema, no calf tenderness Neurologic/Psychiatric: alert, normal mood/affect, oriented x 3 Skin: normal color, warm/dry, no rash Laboratory Results Last 24 Hours Test 03/07/17 12:27 03/08/17 05:36 Hemoglobin 10.1 g/dL 9.0 g/dL Hematocrit 29.6 % 26.8 % White Blood Count 7.98 K/uL Red Blood Count 2.91 M/uL Mean Corpuscular Volume 92.1 fL Mean Corpuscular Hemoglobin 30.9 pg Mean Corpuscular Hemoglobin Concent 33.6 g/dl RDW Standard Deviation 43.0 fL RDW Coefficient of Variation 12.6 % Platelet Count 235 K/uL Mean Platelet Volume 10.1 fL Sodium Level 147 mmol/L Potassium Level 3.6 mmol/L Chloride Level 113 mmol/L Carbon Dioxide Level 26 mmol/L Anion Gap 8.0 mmol/L Blood Urea Nitrogen 8 mg/dl Creatinine 0.62 mg/dl Est Creatinine Clear Calc Drug Dose 80.1 ml/min Estimated GFR () 103.0 Estimated GFR (Non- 88.8 BUN/Creatinine Ratio 13.4 Random Glucose 95 mg/dl Calcium Level 8.0 mg/dl Assessment and Plan Patient is a pleasant 76 y/o female, with PMHx of HTN, hyperlipidemia, CAD s/p BRIAN to LAD in 2006, and GERD, who presented to the ED because of rectal bleeding /melena that begin last evening. Anemia, secondary to GI bleed: - Admit to tele for cardiac monitoring- no acute events -- Transfer to med/surg on 03/08 - Trend H&H- STABLE - IV Protonix BID- switch to PO BID on 03/08 - Treated w/ IV NSS @ 100 ml/hr while NPO - Type and screen - Consult GI, appreciate recommendations- patient follows w/ Dr. Shafer -- Bowel prep and planning for colonoscopy on 03/08 - Congested and ulcerated mucosa in the cecum. Clips (MR conditional) were placed. - Melanosis in the colon. - The examination was otherwise normal. - The examined portion of the ileum was normal. HTN: - Continue Amlodipine 5 mg and Losartan 100 mg daily - IV 10 mg Hydralazine PRN SBP >180 and DBP >100 while NPO Hyperlipidemia: Lipitor 10 mg HS CAD s/p BRIAN to LAD in 2006: - Continue Metoprolol 100 mg daily - Patient follows w/ Dr. Pérez GI Prophylaxis: Protonix, Maalox PRN, IV Zofran PRN, Colace and/or Milk of Mag PRN DVT Prophylaxis: TEDs/SCDs; chemical therapy contraindicated due to GI bleed Code Status: LEVEL I, FULL Dispo: Discharge to home once medically stable- likely tomorrow if tolerates diet and hgb stabilizes
[2017-03-08 11:44] VITALS: BP 145/75; PULSE 66; TEMP 36.8; O2SAT 97
--- NOTE | 2017-03-08 13:53 | PROGRESS NOTE ---
DATE: 03/08/2017 SUBJECTIVE: The patient has passed a small blood clot today but otherwise feels well and is taking food orally. OBJECTIVE: Her blood pressure is 145/75, pulse 66. Hemoglobin is 9, which is down from 11.6 two days ago. She has no abdominal pain at this time. 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 Shafer clipped with 4 Hemoclips yesterday. The patient will be observed overnight to make sure she has no further active bleeding and that her hemoglobin remains stable and if so, then she should be able to be discharged tomorrow.
[2017-03-08 15:11] VITALS: BP 124/70; PULSE 70; TEMP 36.6; O2SAT 96
[2017-03-08 17:48] VITALS: BP 124/70; PULSE 70; TEMP 36.6; O2SAT 96
[2017-03-08] MEDS: LOSARTAN POTASSIUM 50 MG TAB PO SCH (20:58)
[2017-03-08] MEDS: CEROVITE ADV FORMULA TAB PO SCH (20:59)
[2017-03-08] MEDS: METOPROLOL SUCC 50MG EXT REL TAB PO SCH (20:59)
[2017-03-08] MEDS: ATORVASTATIN 10 MG TAB PO SCH (20:59)
[2017-03-08] MEDS: AMLODIPINE BESYLATE 5 MG TAB PO SCH (21:00)
[2017-03-09 00:19] VITALS: BP 124/67; PULSE 64; TEMP 36.9; O2SAT 96
[2017-03-09 06:40] VITALS: BP 129/67; PULSE 83; TEMP 36.6; O2SAT 95
[2017-03-09 07:05] LABS: HEMATOCRIT 28.3 % (37-47); MEAN CELL VOLUME 91.3 fL (80-100); MEAN CORPUSCULAR HEMOGLOBIN 30.6 pg (25-34); MEAN CORPUSCULAR HGB CONC 33.6 g/dl (32-36); PLATELET COUNT 270 K/uL (130-400); WHITE BLOOD COUNT 7.26 K/uL (4.8-10.8)
[2017-03-09 07:38] LABS: BUN/CREATININE RATIO 11.4 (10-20); CALCIUM 8.8 mg/dl (8.5-10.1); CREATININE 0.81 mg/dl (0.60-1.20); POTASSIUM 3.5 mmol/L (3.5-5.1)
[2017-03-09] MEDS: PANTOprazole SOD 40 MG TAB PO SCH (07:44)
[2017-03-09 08:46] VITALS: BP 129/67; PULSE 83; TEMP 36.6; O2SAT 95
--- NOTE | 2017-03-09 08:52 | Discharge Instructions ---
Discharge Instructions Date of Service Mar 09, 2017. Admission Reason for Admission: Anemia, Gi Bleed Discharge Discharge Diagnosis / Problem: Gastrointestinal bleed, acute blood loss anemia Discharge Goals Goal(s): Decrease discomfort, Improve function, Diagnostic testing, Therapeutic intervention Activity Recommendations Activity Limitations: resume your previous activity (as tolerated) . Instructions / Follow-Up Instructions / Follow-Up You were admitted to the hospital after presenting with rectal bleeding. You were also found to have anemia, presumably secondary to the blood loss. A colonoscopy was performed on 03/[address] Shafer which revealed with source of bleeding. This area was clipped to stop the bleeding. Your blood counts have been stabilizing and are now starting to improve. As you have had no recurrence of the bleeding and are able to tolerate a regular diet, you are now medically stable for discharge. Medications: *STOP taking aspirin for now until you are able to follow up with your primary care provider and have your blood counts checked again. You may resume when okay with your primary care provider. *Continue your other home medications as prescribed. Follow up: *Follow up with your primary care provider in 1 week regarding your hospital stay. You will also need a follow up blood test called a complete blood count ( CBC) in 1 week to ensure that your blood counts and anemia are improving. Please seek medical attention if you experience fevers, chills, sweats, lightheadedness/dizziness, loss of consciousness, chest pain, shortness of breath, nausea, vomiting, abdominal pain, rectal bleeding, bloody stools, dark/ tarry stools, or increased weakness and fatigue. Current Hospital Diet Patient's current hospital diet: Regular Diet Discharge Diet Recommended Diet: Regular Diet Procedures Procedures Performed: Colonoscopy Pending Studies Studies pending at discharge: no Medical Emergencies . Who to Call and When: Medical Emergencies: If at any time you feel your situation is an emergency, please call 911 immediately. . Non-Emergent Contact Non-Emergency issues call your: Primary Care Provider Call Non-Emergent contact if: you have a fever, you have any medication questions . Past History Medical & Surgical History: (1) GI bleed (2) Anemia . "Provider Documentation" section prepared by Yumiko Brown. . VTE Core Measure Inpt VTE Proph given/why not?: T.E.D. Stockings, SCD's, Contraindicated
--- NOTE | 2017-03-09 12:50 | Discharge Summary ---
Discharge Summary Date of Service Mar 09, 2017. Discharge Summary Admission Date: Mar 06, 2017 at 07:53 Discharge Date: Mar 09, 2017 Discharge Disposition: Home Principal Diagnosis: GI bleed, acute blood loss anemia Problems/Secondary Diagnoses: HTN Hyperlipidemia CAD s/p BRIAN to LAD in 2006 GERD Immunizations: Have You Had Influenza Vaccine: Yes History of Tetanus Vaccine?: Yes History of Pneumococcal: Yes History of Hepatitis B Vaccine: No Procedures: Patient: CONG SILVA Admit Date: 03/06/1706/21/17 Med Rec: [id number] Acct ID: [id number] [~ rep ct labl] Page 2of 2 p: [~ rep prt dt last] [~ rep prt tm last] [~ rep ct labl] Page 1of 1 p: [~ rep prt dt last] [~ rep prt tm last] GI REPORT [place], [place] Patient: CONG SILVA Admit Date: 03/06/1706/21/17 Med Rec: [id number] Att Phy: Quinton Haq MD, PhD Acct ID: [id number] Angie Phy: Mario Figueroa M.D. Date: 1940 Ref Phy: Self, Referred Fam Phy: Mario Figueroa M.D. Age: 76 Location: [facility] Sex: F Room/Bed: [facility] MNE:PROVATION REPORT #: [id number] CC: Dom Shafer M.D. Endcc: DICTATED BY: Dom Shafer M.D. Procedure Date: 03/07/2017 3:22 PM Procedure: Colonoscopy Indications: Hematochezia Medicines: Propofol per Anesthesia Complications: No immediate complications. Estimated blood loss: None. Estimated Blood Loss: Estimated blood loss: none. Procedure: Pre-Anesthesia Assessment: - Prior to the procedure, a History and Physical was performed, and patient medications and allergies were reviewed. The patient's tolerance of previous anesthesia was also reviewed. The risks and benefits of the procedure and the sedation options and risks were discussed with the patient. All questions were answered, and informed consent was obtained. Prior Anticoagulants: The patient has taken no previous anticoagulant or antiplatelet agents. ASA Grade Assessment: II - A patient with mild systemic disease. After reviewing the risks and benefits, the patient was deemed in satisfactory condition to undergo the procedure. After I obtained informed consent, the scope was passed under direct vision. Throughout the procedure, the patient's blood pressure, pulse, and oxygen saturations were monitored continuously. The Scope was introduced through the anus and advanced to the terminal ileum, with identification of the appendiceal orifice and IC valve. The colonoscopy was performed without difficulty. The patient tolerated the procedure well. The quality of the bowel preparation was good. Findings: The perianal and digital rectal examinations were normal. Pertinent negatives include normal sphincter tone, no palpable rectal lesions and no anal lesion or abnormality was detected. A localized area of moderately congested and ulcerated mucosa was found in the cecum reflecting prior AVM/cautery site from february 26.. For hemostasis, four hemostatic clips were successfully placed (MR conditional). There was no bleeding during, and at the end, of the procedure. A diffuse area of moderate melanosis was found in the entire colon. The exam was otherwise without abnormality. The terminal ileum appeared normal. No blood seen in TI therfore EGD not necessary. Source of bleeding is most likley from post AVM cautery site in cecum. Small non bleeding visible vessl seen that was successfully clipped. Impression: - Congested and ulcerated mucosa in the cecum. Clips (MR conditional) were placed. - Melanosis in the colon. - The examination was otherwise normal. - The examined portion of the ileum was normal. - No specimens collected. Recommendation: - Advance diet as tolerated. - Continue present medications. - Check hemoglobin daily. MD Dom Castro MD 03/07/2017 4:10:11 PM This report has been signed electronically. Note Initiated On: 03/07/2017 3:22 PM I attest to the content of the Intraoperative Record and orders documented therein, exceptions below Dictated: 03/07/17 1522 Signed: 03/07/17 1610 The status of this report is Signed. Draft = Not yet reviewed or approved by Medical Physician. Signed = Reviewed and approved by Medical Physician. <ConsultingPhyMNE>f pt consult dr rao</ConsultingPhyMNE> <FamilyPhyMNE>f pt fam dr rao</FamilyPhyMNE> <OtherPhyMNE>f pt other dr mne</OtherPhyMNE> < PrimaryPhyMNE>f pt prim care dr rao</PrimaryPhyMNE> <ReferringPhyMNE>f pt referring dr rao</ReferringPhyMNE> Consultations: GI--Dr. Shafer Medication Reconciliation Continued Medications: Albuterol Sulfate (Proair Respiclick) 108 Mcg/Act Aer 2 SPRAYS PO QID PRN for SOB/Wheezing Amlodipine (Norvasc) 10 Mg Tab 10 MG PO DAILY, TAB Atorvastatin (Lipitor) 10 Mg Tab 10 MG PO HS, TAB Beclomethasone Dipropionate (N (Qnasl) 80 Mcg/Act Aer 1 SPRY TAMARA DAILY, #8.7 GM 11 Refills Calcium W/ Magnesium (Calcium & Magnesium) 1 Tab Tab 1200 MG PO DAILY Cholecalciferol (Vitamin D) 2,000 Unit Tab 6000 UNIT PO DAILY Clindamycin HCl (Clindamycin HCl) 300 Mg Cap 2 CAP PO UD PRN for 1hr prior to dental appt Esomeprazole Magnesium (Nexium) 40 Mg Capcr 40 MG PO DAILY, CAP Garlic (Garlic) 1,000 Mg Cap 5000 MG PO UD take twice a day on saturdays & sundays Losartan Potassium (Cozaar) 100 Mg Tab 100 MG PO DAILY, TAB Metoprolol Succinate (Toprol Xl) 100 Mg Tabcr 100 MG PO DAILY, 3 Refills Multiple Vitamins W/ Minerals (Ocuvite) 1 Tab Tab 2 TABS PO DAILY Multivitamin (Multivitamin) Tab 2 TAB PO DAILY, TAB Nitroglycerin (Nitrostat) 0.4 Mg Sub 0.4 MG UT UD PRN for Chest Pain every 5 min up to 3 doses Olopatadine Hydrochloride (Pataday) 37 Drops/2.5 Ml Soln 1 DROPS OP DAILY, 3 Refills Polyethylene Glycol-Propylene (Systane Gel) 1 Sridhar Sridhar OP UD Prasterone (Dhea) (Dhea) 10 Mg Cap 10 MG PO DAILY Probiotic Product (Probiotic Daily) 1 Cap Cap 1 CAP PO DAILY Vitamins C & E (Vitamin C) 1 Cap Cap 2 CAP PO TID Discontinued Medications: Aspirin (Aspirin 81) 81 Mg Tab 81 MG PO DAILY Referrals At Discharge Follow up Referrals: Family Practice Referral - Within 1 Week with Mario Figueroa M.D. Discharge Exam Patient reports feeling well. She denies any hematochezia or melena. She denies lightheadedness/dizziness, shortness of breath, chest pain, palpitations and diaphoresis and is eager to return home. The patient denies fevers, chills , sweats, chest pain, palpitations, claudication, cough, wheezing, shortness of breath, nausea, vomiting, abdominal pain, dysuria, hematuria, urinary retention , paralysis, weakness, numbness and tingling. Review of Systems: Constitutional: No fever, No chills, No sweats, No weakness, No fatigue Eyes: No worsening of vision, No eye pain, No diplopia ENT: No hearing loss, No sore throat, No trouble swallowing Respiratory: No cough, No wheezing, No shortness of breath Cardiovascular: No chest pain, No claudication, No palpitations Abdomen: No pain, No nausea, No vomiting, No GI bleeding Musculoskeletal: No joint pain, No muscle pain, No calf pain Genitourinary - Female: No dysuria, No urinary retention, No hematuria Neurologic: No paralysis, No weakness, No numbness/tingling Integumentary: No rash, No itch, No color change Physical Exam: General Appearance: WD/WN, no apparent distress, + obese Eyes: normal inspection, PERRL, EOMI ENT: normal ENT inspection, hearing grossly normal, pharynx normal Neck: supple, no JVD, trachea midline Respiratory/Chest: lungs clear, normal breath sounds, no respiratory distress Cardiovascular: regular rate, rhythm, no gallop, no murmur Abdomen / GI: normal bowel sounds, non tender, soft Extremities: normal inspection, no calf tenderness, no pedal edema Neurologic/Psychiatric: alert, normal mood/affect, oriented x 3 Skin: normal color, warm/dry, no rash Hospital Course Admission History of Present Illness per Flori Martinez's complete H&P 03/06: Patient is a pleasant 76 y/o female, with PMHx of HTN, hyperlipidemia, CAD s/p BRIAN to LAD in 2006, and GERD, who presented to the ED because of rectal bleeding /melena that began last evening. According to the patient, last evening before bed she noticed bright red blood in her rectum. Shortly after she went to the bathroom and noticed black/red stool and bright red blood. The patient had multiple BMs throughout the night which progressively had less stool and more obvious blood. Last episode of noticeable blood was around 530 this AM prior to arriving to the ED via EMS. She admits to lightheadedness/dizziness, weakness, and diaphoresis as the night progressed. Patient's last meal was 03/05 around 0. She denies having anything like this in the past. Patient had a colonoscopy by Dr. Shafer on 02/26 due to bloating and changing in stool shape/ consistency. She was found to have a small polyp (has not heard of pathology), blood vessel cauterization, and diverticular disease. She admits to GERD and states she had an EGD in 2011. She is to take Nexium over the counter, but does not take it. Patient denies any fever, chills, sweats, vision changes, CP, palpitations, edema, SOB, wheezing, cough, abdominal pain, nausea, vomiting, diarrhea, urinary symptoms, numbness/tingling, muscle/joint pain, anxiety/ depression, or new skin discoloration/changes. 76 y/o female, with a history of HTN, HLD, CAD s/p BRIAN to LAD (2006), and GERD who presented to the ED on 03/06 with rectal bleeding/melena beginning last evening prior to arrival. Acute lower GI bleed--resolved - Admitted to tele for cardiac monitoring. No acute events on tele. Transferred to med/surg on 03/08 - IV Protonix BID- switch to PO BID on 03/08. Continue home Nexium on discharge. - Treated w/ IV NSS @ 100 ml/hr while NPO - Type and screen. No blood given during stay. - Consult GI, appreciate recommendations- patient follows w/ Dr. Shafer -- Bowel prep and planning for colonoscopy on 03/07 - Congested and ulcerated mucosa in the cecum. Clips (MR conditional) were placed. - Melanosis in the colon. - The examination was otherwise normal. - The examined portion of the ileum was normal.\ Acute blood loss anemia--improving - Trend H&H: STABLE. Hgb improving after colonoscopy at time of discharge. F/ u CBC as outpatient in 1 week with PCP. Instructed to hold ASA until ok with PCP HTN--stable - Continue Amlodipine 5 mg PO qd and Losartan 100 mg PO qd - IV 10 mg Hydralazine PRN SBP >180 and DBP >100 while NPO Hyperlipidemia -Continue Lipitor 10 mg PO qhs CAD s/p BRIAN to LAD in 2006 - Continue Metoprolol 100 mg PO qd - Hold ASA as above - Patient follows w/ Dr. Pérez GI Prophylaxis - Protonix - Maalox PRN - IV Zofran PRN - Colace and/or Milk of Mag PRN DVT Prophylaxis -Hold chemical prophylaxis due to bleed -Herman zavala/Amparo Code Status -Level I, FULL RESUSCITATION STATUS Dispo -Patient observed after colonoscopy to ensure no more active bleeding -Clear for discharge if Hgb remains stable per GI. Hgb improved on 03/09, discharge to home Total Time Spent: Greater than 30 minutes This includes examination of the patient, discharge planning, medication reconciliation, and communication with other providers. Discharge Instructions Please refer to the electronic Patient Visit Report (Discharge Instructions) for additional information. Additional Copies To Mario Figueroa M.D.
== END 2017-03-09 10:05 | disposition home or self-care (01) | DRG 982 ==
LOC: EDBD 05:37 → C.EDA 05:38 → C.MED 07:53 → ENRESERV 08:54 → C.MED 03-07 12:24 → C.MS4W 03-08 17:38
PROVIDERS: ADMIT Hospitalist; ATTEND Hospitalist
PROC: 0DQ Gastrointestinal System, Repair (ICD-10-PCS; principal; 2017-03-07 14:52)
DX: Q27.33 Arteriovenous malformation of digestive system vessel (principal); K92.2 Gastrointestinal hemorrhage, unspecified; D62 Acute posthemorrhagic anemia; K63.89 Other specified diseases of intestine; I10 Essential (primary) hypertension; E78.5 Hyperlipidemia, unspecified; I25.10 Atherosclerotic heart disease of native coronary artery without angina pectoris; K21.9 Gastro-esophageal reflux disease without esophagitis; Z79.82 Long term (current) use of aspirin; Z79.899 Other long term (current) drug therapy; Z95.5 Presence of coronary angioplasty implant and graft

== ENCOUNTER → 2017-11-01 | Outpatient (CLI) | payer BC, OTHER ==
[~2017-11-01] MED LIST changes: -ADVAIR INHALER INH; +ALBU18002 PO; -ALFALFA PO; +AMLO-114 PO; -ASCA500 PO; -ASPEC81 PO; -ASTNS; +ATOR10TA82 PO; -B-COCAP2 PO; +BECL1AER5 NAE; -CADUET PO; +CALC-214 PO; -CALCIUM/MAG PO; -CAYENNE PEPPER PO; +CHOL20009 PO; +CLC/300 PO; -CLR10 PO; -ERGO1CAP35 PO; -FISHOIL PO; +GARL10007 PO; -GARLIC PO; -GLUCOSAMINE CHOND PO; -HERB LAX PO; -HYDC25 PO; -HYZ/50125; -LECITHIN PO; -LIDO5DIS10 TD; +LOSA100T65 PO; -METO50TA7 PO; +MULT-188 PO; +MULT-506 PO; +NITR0.4S UT; -NITROQUICK SL; +NXM/40 PO; -PAPAYA ENZYME PO; +POLY1DRO2 OP; +PRAS1CAP3 PO; -PRED10TA PO; +PROB1CAP41 PO; -PROVENTIL INHALER INH; +PTDOPS OP; -QVRINH80 INH; -SNG10 PO; +TPRSR100 PO; -VERAMYST NASAL SPRAY NAE; -VITA400C15 PO; +VITACAP26 PO; -ZINC PO; -[UNRECOGNIZED DRUG - OTHER] PO; -[UNRECOGNIZED DRUG - OTHER] PO; -[UNRECOGNIZED DRUG - OTHER] PO; -[UNRECOGNIZED DRUG - OTHER] PO
--- NOTE | 2017-11-01 14:57 | MAMMOGRAPHY REPORT ---
BILATERAL DIGITAL SCREENING MAMMOGRAM TOMOSYNTHESIS WITH CAD: 11/01/2017 CLINICAL HISTORY: Routine screening. Patient has no complaints. TECHNIQUE: Breast tomosynthesis in addition to standard 2D mammography was performed. Current study was also evaluated with a Computer Aided Detection (CAD) system. COMPARISON: Comparison is made to exams dated: 10/30/2016 mammogram, 10/26/2015 mammogram, 10/04/2014 m ammogram, 10/01/2013 mammogram, 09/30/2012 mammogram, and 09/24/2011 mammogram - [facility]. BREAST COMPOSITION: There are scattered areas of fibroglandular density in both breasts. FINDINGS: No suspicious masses, calcifications, or areas of architectural distortion are noted in ei ther breast. There has been no significant interval change compared to prior exams. Scattered bilate ral benign appearing calcifications are not significantly changed. Small benign-appearing right jose st masses are also stable. IMPRESSION: ACR BI-RADS CATEGORY 2: BENIGN There is no mammographic evidence of malignancy. A 1 year screening mammogram is recommended. The pa tient will receive written notification of the results. Approximately 10% of breast cancers are not detected with mammography. A negative mammographic report should not delay biopsy if a clinically suggestive mass is present. Whit Dupont M.D. /:11/01/2017 12:13:30 Vat Washer: Li MALIN(Roanld)(Matt), [facility] letter sent: Normal 1/2 BI-RADS Code: ACR BI-RADS Category 2: Benign
== END | disposition home or self-care (01) ==
LOC: C.MAMM 10:46
PROVIDERS: ATTEND Obstetrics & Gynecology
DX: Z12.31 Encounter for screening mammogram for malignant neoplasm of breast (principal)

== ENCOUNTER → 2017-11-11 | Outpatient (CLI) | payer BC, OTHER | END | disposition home or self-care (01) | LOC: C.RDSM 13:10 | PROVIDERS: ATTEND Physical Medicine & Rehabilitation Sports Medicine | DX: M17.11 Unilateral primary osteoarthritis, right knee (principal) ==

== ENCOUNTER → 2017-12-03 | Outpatient (CLI) | payer BC, OTHER ==
[~2017-12-03] MED LIST changes: -ALBU18002 PO; +AMLO-110 PO; -AMLO-114 PO; +ASPI81TA28 PO; +COEN1CAP32 PO; -GARL10007 PO; +PROP1SOL OP; +RANI150T85 PO; +SEE NOTES; -VITACAP26 PO
--- NOTE | 2017-12-03 11:34 | DIAGNOSTIC IMAGING REPORT ---
ABDOMEN LIMITED (US) HISTORY: 77 years-old Female HEPATIC CYST patient reportedly has a hepatic cyst. No comparison study is available to document this finding. COMPARISON: None available TECHNIQUE: Multiple real-time sonographic images of the abdominal right upper quadrant were obtained assessing grayscale appearance and color flow FINDINGS: Pancreas is partially obscured by bowel gas with the imaged portions appearing unremarkable. Liver demonstrates no intrahepatic biliary ductal dilation. There is a 1.1 cm hyperechoic lesion within the right hepatic lobe without internal vascularity identified, image 25. There is slightly increased echogenicity of the liver. No additional mass lesions or cysts identified within the liver. The gallbladder is unremarkable without shadowing cholelithiasis, wall thickening or pericholecystic fluid. Common bile duct is normal, 3 mm. The imaged right kidney is unremarkable without hydronephrosis. IMPRESSION: 1. No hepatic cysts identified. 2. 1.1 cm echogenic lesion of the right hepatic lobe is indeterminate however suggests hepatic hemangioma. 3. No cholelithiasis or sonographic evidence of acute cholecystitis. 4. No biliary ductal dilation. The above report was generated using voice recognition software. It may contain grammatical, syntax or spelling errors. Electronically signed by: Kalen Ramirez M.D. 12/03/2017 11:33 AM Dictated Date/Time: 12/03/2017 11:30 AM
== END | disposition home or self-care (01) ==
LOC: C.ULTR 10:25
PROVIDERS: ATTEND Family Medicine
DX: K76.89 Other specified diseases of liver (principal)

== ENCOUNTER 2017-12-25 04:59 | Inpatient (IN) | payer BC, OTHER ==
[2017-11-29 09:23] VITALS: BMI 33.0
--- NOTE | 2017-11-29 10:05 | PAT Medication Instructions ---
Service Date Nov 29, 2017. Current Home Medication List Amlodipine (Norvasc), 5 MG PO QDD Aspirin (Aspirin Ec), 81 MG PO QDD Atorvastatin (Lipitor), 10 MG PO QDD Beclomethasone Dipropionate (N (Qnasl), 1 SPRY TAMARA DAILY Calcium W/ Magnesium (Calcium & Magnesium), 600 MG PO BID Cholecalciferol (Vitamin D), 6,000 UNIT PO QAM Clindamycin HCl (Clindamycin HCl), 2 CAP PO UD PRN for 1hr prior to dental appt Coenzyme Q10 (Ubidecarenone) (Coq-10), 1 CAP PO QAM Esomeprazole Magnesium (Nexium), 40 MG PO UD PRN for acid reflux Losartan Potassium (Cozaar), 100 MG PO QDD Metoprolol Succinate (Toprol Xl), 100 MG PO QDD Multiple Vitamins W/ Minerals (Ocuvite), 2 TABS PO QAM Multivitamin (Multivitamin), 1 TAB PO BID Nitroglycerin (Nitrostat), 0.4 MG UT UD PRN for Chest Pain Olopatadine Hydrochloride (Pataday), Unknown Dose OP UD PRN for itchy eyes Polyethylene Glycol-Propylene (Systane Gel), 1 DROP OP HS Prasterone (Dhea) (Dhea), 5 MG PO QAM Probiotic Product (Probiotic Daily), 1 CAP PO TIDM Propylene Glycol (Ophth) (Systane Balance Restorati), Unknown Dose OP QAM Ranitidine (Zantac), 150 MG PO UD PRN for prn [See Notes], Unknown Dose Medication Instructions For Your Scheduled Surgery Clindamycin HCl (Clindamycin HCl), 2 CAP PO UD PRN for 1hr prior to dental appt only - Hold the following medications 2 weeks prior to surgery: Coenzyme Q10 (Ubidecarenone) (Coq-10), 1 CAP PO QAM Prasterone (Dhea) (Dhea), 5 MG PO QAM CHLOROPHYLL UD LACTIC ACID UD DERMATROPHIN UD DIAPLEX UD SENIOR THEIRBIOTIC COMPLETE UD DRENAMIN UD PHEA UD PANCREATORPHAN UD GINKO UD - Hold the following medications the night prior to surgery: Losartan Potassium (Cozaar), 100 MG PO QDD - Hold the following medications the morning of surgery: Probiotic Product (Probiotic Daily), 1 CAP PO TIDM Multiple Vitamins W/ Minerals (Ocuvite), 2 TABS PO QAM Multivitamin (Multivitamin), 1 TAB PO BID Calcium W/ Magnesium (Calcium & Magnesium), 600 MG PO BID Cholecalciferol (Vitamin D), 6,000 UNIT PO QAM - Take the following medications the morning of surgery with a sip of water: Propylene Glycol (Ophth) (Systane Balance Restorati), Unknown Dose OP QAM Ranitidine (Zantac), 150 MG PO UD PRN for prn (if needed) Olopatadine Hydrochloride (Pataday), Unknown Dose OP UD PRN for itchy eyes (if needed) Esomeprazole Magnesium (Nexium), 40 MG PO UD PRN for acid reflux (if needed) Nitroglycerin (Nitrostat), 0.4 MG UT UD PRN for Chest Pain (if needed) Beclomethasone Dipropionate (N (Qnasl), 1 SPRY TAMARA DAILY - Take the following medications as scheduled the night before surgery: Metoprolol Succinate (Toprol Xl), 100 MG PO QDD Ranitidine (Zantac), 150 MG PO UD PRN for prn (if needed) Probiotic Product (Probiotic Daily), 1 CAP PO TIDM Polyethylene Glycol-Propylene (Systane Gel), 1 DROP OP HS Olopatadine Hydrochloride (Pataday), Unknown Dose OP UD PRN for itchy eyes (if needed) Esomeprazole Magnesium (Nexium), 40 MG PO UD PRN for acid reflux (if needed) Nitroglycerin (Nitrostat), 0.4 MG UT UD PRN for Chest Pain (if needed) Multivitamin (Multivitamin), 1 TAB PO BID Amlodipine (Norvasc), 5 MG PO QDD Aspirin (Aspirin Ec), 81 MG PO QDD Atorvastatin (Lipitor), 10 MG PO QDD If you have any questions please call us at [phone] or [phone] or [phone]
[2017-11-29 12:08] LABS: BASO % 0.8 %; BASO ABS # 0.05 K/uL (0-0.2); EOS % 1.4 %; EOS ABS # 0.09 K/uL (0-0.5); HEMATOCRIT 41.3 % (37-47); HEMOGLOBIN 14.2 g/dL (12.0-16.0); IG# 0.02 K/uL (0.00-0.02); LYMPH % 26.3 %; LYMPH ABS # 1.66 K/uL (1.2-3.4); MEAN CELL VOLUME 91.6 fL (80-100); MEAN CORPUSCULAR HEMOGLOBIN 31.5 pg (25-34); MEAN CORPUSCULAR HGB CONC 34.4 g/dl (32-36); MEAN PLATELET VOLUME 10.4 fL (7.4-10.4); MONO % 8.3 %; MONO ABS # 0.52 K/uL (0.11-0.59); NEUT % 62.9 %; NEUT ABS # 3.96 K/uL (1.4-6.5); PLATELET COUNT 266 K/uL (130-400); RED CELL DISTRIBUTION WIDTH CV 12.2 % (11.5-14.5); RED CELL DISTRIBUTION WIDTH SD 41.2 fL (36.4-46.3)
[2017-11-29 12:16] LABS: CALCIUM 9.4 mg/dl (8.5-10.1); CREATININE 0.79 mg/dl (0.60-1.20)
[2017-11-29 12:21] LABS: PTT PATIENT 25.3 SECONDS (21.0-31.0)
--- NOTE | 2017-11-29 13:48 | DIAGNOSTIC IMAGING REPORT ---
CHEST 2 VIEWS ROUTINE CLINICAL HISTORY: 77 years-old Female presenting with preoperative assessment. TECHNIQUE: PA and lateral views of the chest were obtained. COMPARISON: 11/23/2008. FINDINGS: Atherosclerosis of aortic arch. Cardiac silhouette mildly enlarged. Lungs and pleural spaces clear. Degenerative changes of the thoracic spine. Upper abdomen normal. IMPRESSION: 1. No acute cardiopulmonary disease. Electronically signed by: Arsalan Jessica M.D. 11/29/2017 1:47 PM Dictated Date/Time: 11/29/2017 1:46 PM
--- NOTE | 2017-12-03 16:10 | HISTORY & PHYSICAL EXAMINATION ---
DATE OF ADMISSION: 12/25/2017 CHIEF COMPLAINT: Right knee degenerative joint disease. HISTORY OF PRESENT ILLNESS: This 77-year-old white female presents to the office with complaints of right knee pain that has been ongoing for several years. She has tried activity modification, use of assistive devices, oral pain medication, and viscosupplementation with reasonable relief until the last 6 months. Pain is both medial and lateral. No locking or catching. She denies any buckling. No numbness or tingling. She denies any effusions. Pain is affecting her ADLs. It is prohibiting her from doing activities she would like to do. It is worse with weightbearing. She elects to proceed with a total knee arthroplasty in hopes of alleviating her pain. Preoperative imaging has been obtained. PAST MEDICAL HISTORY: Significant for hypertension, elevated cholesterol, asthma, heart disease, adrenal gland dysfunction, osteoarthritis, chronic back pain, GERD, obesity, vitamin B12 deficiency, and history of squamous cell carcinoma. PREVIOUS SURGERIES: Numerous colonoscopies, D&C x3, tonsillectomy with adenoidectomy, bilateral cataract surgery, mandible grafting, left total knee arthroplasty in 12/02/2008, heart catheterization with a drug-eluting stent placement in 01/28/2007, heart catheterization in 11/23/2008, and multiple shave biopsies. FAMILY HISTORY: Significant for cancer, diabetes, heart disease and stroke. Parents are . SOCIAL HISTORY: The patient is retired. No tobacco use, no ETOH use. . ALLERGIES: KNOWN SENSITIVITY TO AMOXICILLIN, AUGMENTIN, AZITHROMYCIN, AND FOSAMAX; ALL OF THESE CAUSE DIARRHEA. CURRENT MEDICATIONS: Amlodipine 5 mg daily, aspirin 81 mg daily, atorvastatin 10 mg daily, beclomethasone nasal spray 80 mcg per inhalation 1 spray in each nostril daily, calcium 1200 mg p.o. b.i.d., vitamin D3 2000 international units 3 tablets p.o. daily, Nexium 40 mg p.o. daily, losartan 100 mg p.o. daily, metoprolol 100 mg p.o. daily, MetroCream 0.75% topical applied b.i.d., multivitamin daily, nitroglycerin 0.4 mg sublingual q. 5 minutes p.r.n., Systane eyedrops nightly, Pataday 0.2% solution 1 drop in both eyes daily, Zantac 150 mg p.o. daily, and CoQ10 400 mg daily. REVIEW OF SYSTEMS: Significant for above-stated conditions, otherwise unremarkable. PHYSICAL EXAMINATION: GENERAL: Well-developed, well-nourished elderly white female in no acute distress. Sitting on the chair. Alert and oriented. SKIN: Warm and dry with good turgor. No rashes or lesions. No ecchymosis or erythema. No intraarticular effusion. HEENT: Normocephalic, atraumatic. EYES: PERRLA, EOMI. EARS: TMs intact bilaterally with good light reflexes, no erythema or bulging. NOSE: Nares patent bilaterally without turbinate enlargement. MOUTH: Oropharynx without erythema or exudate. No lesions noted. Uvula in the midline. Oral mucosa moist. Good dentition. Dental caps are noted. HEART: RRR, soft systolic ejection murmur noted. No gallops or rubs. LUNGS: Clear to auscultation bilaterally. No crackles, rhonchi or wheezing. Good air movement. ABDOMEN: Obese. Bowel sounds present x4, soft, nontender. No organomegaly. No masses. MUSCULOSKELETAL: Right knee evaluation reveals no intraarticular effusion. She has full terminal extension. Flexion to greater than 100 degrees. Strength is 5/5 with fair quad tone. No defect in the patellar tendon or quadriceps tendon. Varus alignment. Stable collateral ligaments. There is focal pain with palpation over the medial and lateral joint lines. Mild crepitus is palpable with motion. No peripatellar discomfort today with palpation. NEUROLOGIC: Cranial nerves II through XII are intact. Gross sensation is intact across the right lower extremity by soft touch. Peripheral pulses are 2+. IMAGING DATA: Radiographic imaging previously obtained show significant arthritic change. Periarticular osteophytes, subchondral sclerosis, and joint space narrowing are all present in the right knee. IMPRESSION: Right knee end-stage degenerative joint disease. PLAN: Informed written consent will be obtained the morning of surgery. Postoperative prescription for Percocet and Coumadin will be provided at discharge from the hospital. Anticipate discharge to home with 2 weeks of home health services and then outpatient PT. She already has a walker. Preoperative lab work, EKG, and chest x-ray have been ordered. She will obtain medical clearance from her PCP, Dr. Kaiser. DYLAN
[2017-12-25] VITALS (8 sets, daily range): BP systolic 115–149; BP diastolic 63–80; PULSE 60–79; TEMP 36.5–36.9; O2SAT 93–97; Ht 160 cm; Wt 86.5 kg
[~2017-12-25] VITALS: Ht 160 cm; Wt 86.5 kg
[2017-12-25] MEDS ORDERED: ROPIVACAINE 5MG/ML 30 ML 150 MG, BUPIVACAINE/EPINEPHR 0.5% MPF 30 ML, KETOROLAC TROMETH... INFIL SCH ×7 (06:00)
[2017-12-25] MEDS ORDERED: TRANEXAMIC ACID INJ 1,000 MG x 1 Bag Intra-Op IV SCH ×2 (06:00)
[2017-12-25] MEDS ORDERED: LACTATED RINGER'S 1000ML 500 ML IV SCH (06:00)
[2017-12-25] MEDS ORDERED: LACTATED RINGER'S 1000ML 1,000 ML IV SCH (06:00)
[2017-12-25] MEDS ORDERED: LACTATED RINGER'S 1000ML IV SCH (06:00)
[2017-12-25] MEDS ORDERED: CEFAZOLIN 2000MG IV PUSH 15 ML IV SCH (06:00)
[2017-12-25] MEDS ORDERED: EpINEphrine INJ 1MG/ML AMP 1 MG/ML AMP ONE (06:19)
[2017-12-25] MEDS ORDERED: DEXAMETHASONE SOD INJ 4 MG/ML VIAL ONE (06:19)
[2017-12-25] MEDS ORDERED: BUPIVACAINE 0.25% 30 ML VIAL ONE (06:19)
[2017-12-25] MEDS ORDERED: BUPIVACAINE 0.5 % 5 MG/1 ML PF 10ML VIAL ONE (06:19)
--- NOTE | 2017-12-25 06:19 | History & Physical Bridge Note ---
H&P Re-Evaluation Bridge Note: I have examined the patient, reviewed the History & Physical and in the interval since the performance of the History & Physical I have noted the following changes of clinical significance: consent obtained.decreased BP meds. No changes noted
[2017-12-25] MEDS ORDERED: MIDAZOLAM HCL 1 MG/ML 2ML VIAL ONE (06:27)
[2017-12-25] MEDS ORDERED: FENTANYL CITRATE INJ 50 MCG/1 ML 2 ML VIAL ONE (06:27)
[2017-12-25] MEDS ORDERED: POVIDONE-IODINE OP SOLN 30 ML BTL ONE (06:31)
[2017-12-25] MEDS ORDERED: ORTHO JOINT ANESTHETIC ONE (06:31)
--- NOTE | 2017-12-25 08:26 | [facility] Post Operative Brief Note ---
Immediate Operative Summary Operative Date Dec 25, 2017. Pre-Operative Diagnosis Right Knee End-Stage Degenerative Joint Disease Post-Operative Diagnosis Right Knee End-Stage Degenerative Joint Disease Procedure(s) Performed Right Total Knee Arthroplasty Surgeon Dr. Ortega Ward Supervisor Surgeon(s) Dr. Enoc Magaña (Fellow)/MELISA Smith Estimated Blood Loss 25 ml Findings Consistent with Post-Op Diagnosis Fluids (cc crystalloids) 1200cc Specimens A. Right Knee Bone and Tissue Drains None Anesthesia Type MAC Spinal Regional Complication(s) none Disposition Accompanied Pt To Recover: no Disposition: Recovery Room / PACU
[2017-12-25] MEDS ORDERED: METOCLOPRAMIDE HCL INJ 5 MG/ML 2 ML VIAL IV PRN (08:45)
[2017-12-25] MEDS ORDERED: NITROGLYCERIN 0.4 MG SL PER TAB CHARGE UT PRN (08:45)
[2017-12-25] MEDS ORDERED: ACETAMINOPHEN IV 100 ML IV PRN (08:45)
[2017-12-25] MEDS ORDERED: ALUMINUM/MAGNESIUM/SIMETH (MAALOX MAX) 30 ML UDC PO PRN (08:45)
[2017-12-25] MEDS ORDERED: ONDANSETRON INJ 2 MG/ML 2 ML VIAL IV PRN (08:45)
[2017-12-25] MEDS ORDERED: BISACODYL 10 MG SUPP PR PRN (08:45)
[2017-12-25] MEDS ORDERED: ACETAMINOPHEN 325 MG TAB PO PRN (08:45)
[2017-12-25] MEDS ORDERED: MoRPHine SULFATE 2 MG/ML CARP IV PRN (08:45)
[2017-12-25] MEDS ORDERED: RANITIDINE HCL 150 MG TAB PO PRN (08:45)
[2017-12-25] MEDS ORDERED: DiphenhydrAMINE HCL 50 MG/ML VIAL IV PRN (08:45)
[2017-12-25] MEDS ORDERED: MAGNESIUM HYDROXIDE SUSP 30 ML UDC PO PRN (08:45)
[2017-12-25] MEDS ORDERED: OXYCODONE HCL IR 5 MG TAB (IMMEDIATE RELEASE) PO PRN (08:45)
[2017-12-25] MEDS ORDERED: ATROPINE SULFATE 0.1 MG/ML 5ML SYR IV PRN (09:00)
[2017-12-25] MEDS ORDERED: EpHEDrine SULFATE INJ 50 MG/ML AMP IV PRN (09:00)
--- NOTE | 2017-12-25 09:03 | Anesthesiology Progress Note ---
Anesthesia Post Op Note Date & Time Dec 25, 2017 at 09:02 Vital Signs Pain Intensity: 0 Vital Signs Past 12 Hours Date Time Temp Pulse Resp B/P (MAP) Pulse Ox O2 Delivery O2 Flow Rate FiO2 12/25/17 08:50 36.5 62 16 136/72 96 Nasal Cannula 3 12/25/17 08:40 62 16 120/58 96 Nasal Cannula 3 12/25/17 08:33 36.7 65 16 130/58 95 Nasal Cannula 3 12/25/17 05:40 36.9 67 20 149/65 95 Room Air Notes Mental Status: alert / awake / arousable, participated in evaluation Pt Amnestic to Procedure: No Nausea / Vomiting: adequately controlled Pain: adequately controlled Airway Patency, RR, SpO2: stable & adequate BP & HR: stable & adequate Hydration State: stable & adequate Neuraxial Anesthesia: was administered, sensory block is resolving Anesthetic Complications: no major complications apparent Patient has extensive intraoperative recall, she elected to be "awake" during procedure after preop discussion. Denies pain or distress.
--- NOTE | 2017-12-25 09:14 | DIAGNOSTIC IMAGING REPORT ---
R KNEE 1 OR 2 VIEWS ROUTINE CLINICAL HISTORY: 77 years-old Female presenting with AP/LATERAL IN PACU RIGHT KNEE. TECHNIQUE: Frontal and lateral views of the right knee were obtained. COMPARISON: 11/11/2017. FINDINGS: Postsurgical changes of total right knee arthroplasty with patellar resurfacing. Poor visualization of the patellar resurfacing component. Expected intra-articular and soft tissue emphysema. There is a slight cortical step-off at the distal femoral metaphysis anteriorly appreciated on lateral view. This cortical step-off is associated with a 2-3 mm apparent gap. Apart from this, no malalignment. No periprosthetic fracture. Overlying skin bruce noted. IMPRESSION: 1. Postsurgical changes of total right knee arthroplasty. Patellar resurfacing not well visualized due to positioning. 2. Cortical step-off with radiolucency of 2-3 mm along the anterior femoral component. This is appreciated on lateral view. Electronically signed by: Arsalan Jessica M.D. 12/25/2017 9:13 AM Dictated Date/Time: 12/25/2017 9:10 AM
--- NOTE | 2017-12-25 09:23 | OPERATIVE REPORT ---
DATE OF OPERATION: 12/25/2017 SURGEON: Kodi Ortega MD ENVIRONMENTAL HEALTH TECHNOLOGIST: Archana. SECOND ENVIRONMENTAL HEALTH TECHNOLOGIST: Dre Rasheed PA-C PREOPERATIVE DIAGNOSIS: Osteoarthritis with varus deformity, right knee. POSTOPERATIVE DIAGNOSIS: Same. OPERATION PERFORMED: Cemented right total knee replacement. SUMMARY OF IMPLANTS: Size 2-1/2 femur posterior cruciate substituting, size 2 mobile bearing tray, size 3 oval domed 3 pegged patella and size 2-1/2 x 10 mm posterior cruciate substituting insert matching the femur. PERIOPERATIVE SITUATION: Medically cleared female with intractable knee pain. Physical exam, x-ray and failed PT makes her a candidate for total knee replacement. PROCEDURE: The patient appropriately identified, site verified, consent verified, 2 grams of Ancef as being given. Right lower extremity was prepped and draped in routine fashion. Tourniquet inflated to 275 mmHg after exsanguination of the limb with a rubber Esmarch bandage for a total of 48 minutes. Midline exposure was utilized. Parapatellar arthrotomy performed. Synovectomy completed, osteophytes resected. Distal femur entered. Distal femur resected 12 mm, proximal tibia resected 4 mm extension gap was slightly tight medially soft tissue release to improve that and the everything was excellent. The femur was sized between anywhere from a 2-3, so as measured 2-1/2, cut 2-1/2. There was some slight anterior scoring of the cortex with no major notching. The anterior, posterior condylar and chamfer cuts were then completely removed. Flexion gap was excellent. The box cut was then made and size 2-1/2 trial fit well. Tibia was broached and reamed to a size 2 and then the trial reduction carried out with a 10 mm spacer matching the femur 2.5 size, 10 mm thick. Mid range, full flexion and full extension stability was excellent. The patella tracked well. The patella was sized to a 35. It was resected leaving about 14 mm. It is a very small patella as far as dorsal to ventral thickness. The seating holes were then made. The trial tracked well. All trial implants were removed. Wound was irrigated with Betadine Pulsavac, injected with Orthomix and the permanent cemented in position. After 12 minutes, the tourniquet deflated. After 14 minutes the knee flexed. Minor bleeding points controlled with electrocautery. Minor cement removal occurred. Wound irrigated with Betadine Pulsavac, the permanent liner seated, the knee reduced and tracked well. It was then closed with #2 Vicryl, 0 Vicryl, 2-0 Vicryl and stainless steel clips. Appropriate dressing was applied. ESTIMATED BLOOD LOSS: 25 mL. CRYSTALLOID: 1200 mL SUMMARY OF IMPLANTS: A 2-1/2 size femur, size 2 mobile bearing tray, 3 peg oval dome patella size 35, tibial insert 2.5 x 10 mm posterior cruciate substituting, rotating platform. Two bags of Palacos G cement. DVT prophylaxis with Coumadin. Pathology pending on the bone. I attest to the content of the Intraoperative Record and any orders documented therein. Any exception s are noted below.
[2017-12-25] MEDS ORDERED: D5W AND 1/2NSS + 20MEQ KCL 1,000 ML IV SCH (09:45)
[2017-12-25] MEDS: KETOROLAC TROMETHAMINE 15 MG/ML VIAL IV. SCH ×3 (11:16→22:18)
[2017-12-25] MEDS: FERROUS GLUCONATE 324 MG TAB PO SCH ×2 (13:31→17:56)
--- NOTE | 2017-12-25 13:38 | PROGRESS NOTE ---
DATE: 12/25/2017 Status post right total knee replacement. The patient is doing well, has no complaints of chest pain, shortness breath, fever, chills, nausea, vomiting, or headache. She is eating her food well. Vital signs are stable. She is afebrile. Neurovascular check, femoral sciatic nerve is normal. She can do a straight leg raise. Ankle pumps. Wound dressing clean, dry, and intact. Postop x-rays revealed excellent alignment on the AP, there is no true lateral. There has been comments made about the anterior cortical resection area. There is no fracture. This is a normal finding based on the type of implant that was put in and the size. ASSESSMENT AND PLAN: Overall, doing well. Continue with care pathway. Weightbearing to tolerance. No major range of motion exercises for 2 weeks until the wound heals some. Can be weightbearing to tolerance and gentle range of motion quad setting. DVT prophylaxis per protocol.
[2017-12-25] MEDS: CEFAZOLIN IV 2,000 MG in SYRINGE 0 ML IV SCH ×2 (15:26→22:19)
[2017-12-25] MEDS ORDERED: TRANEXAMIC ACID INJ 1,000 MG in SODIUM CHLORIDE 0.9% 100ML 100 ML IV SCH (16:00)
[2017-12-25] MEDS ORDERED: WARFARIN SOD 5 MG TAB PO SCH (16:00)
[2017-12-25] MEDS: QNASL INH SCH (16:00)
[2017-12-25] MEDS ORDERED: AMLODIPINE BESYLATE 5 MG TAB PO SCH (17:45)
[2017-12-25] MEDS ORDERED: METOPROLOL SUCC 50MG EXT REL TAB PO SCH (17:45)
[2017-12-25] MEDS ORDERED: ATORVASTATIN 10 MG TAB PO SCH (17:45)
[2017-12-25] MEDS ORDERED: ASPIRIN 81 MG ECTAB PO SCH (17:45)
[2017-12-25] MEDS ORDERED: OXYC-57 PO (19:33)
[2017-12-25] MEDS ORDERED: WARF2TAB PO (19:33)
[2017-12-25] MEDS: DOCUSATE SODIUM 100 MG CAP PO SCH (20:35)
[2017-12-25] MEDS ORDERED: ARTIFICIAL TEARS OP SOLN OP SCH (21:00)
[2017-12-26 03:00] VITALS: BP 122/66; PULSE 74; TEMP 36.6; O2SAT 94
[2017-12-26] MEDS: KETOROLAC TROMETHAMINE 15 MG/ML VIAL IV. SCH (04:02)
[2017-12-26 07:03] LABS: HEMATOCRIT 32.3 % (37-47); HEMOGLOBIN 11.3 g/dL (12.0-16.0); MEAN CELL VOLUME 89.2 fL (80-100); MEAN CORPUSCULAR HEMOGLOBIN 31.2 pg (25-34); MEAN PLATELET VOLUME 10.8 fL (7.4-10.4); PLATELET COUNT 238 K/uL (130-400); RED CELL DISTRIBUTION WIDTH CV 12.2 % (11.5-14.5); RED CELL DISTRIBUTION WIDTH SD 39.4 fL (36.4-46.3)
[2017-12-26 07:11] LABS: INR 1.1 (0.9-1.1)
[2017-12-26] MEDS ORDERED: DEXAMETHASONE INJ 10 MG in SYRINGE 0 ML IV ONE (07:30)
--- NOTE | 2017-12-26 07:33 | PROGRESS NOTE ---
DATE: 12/26/2017 SUBJECTIVE: Postop day 1, status post right total knee replacement. The patient is doing well. Has no real issues. Denies chest pain, shortness of breath, fever, chills, nausea, vomiting or headache. OBJECTIVE: Vital signs are stable. She is afebrile. A.m. labs are pending. Wound dressing clean, dry and intact. Can do straight leg raise. Neurovascular check distally, posterior tib, deep and superficial peroneal nerves are intact. ASSESSMENT: Overall, doing well status post right total knee replacement. We will discharge today after PT, OT and Coumadin given per INR. If INR is less than 1.4, discharge on 4 mg; if it is greater than 1.4, discharge on 2 mg. Check INR on Saturday.
[2017-12-26 07:36] LABS: CALCIUM 8.6 mg/dl (8.5-10.1); CREATININE 0.67 mg/dl (0.60-1.20); POTASSIUM 3.6 mmol/L (3.5-5.1)
--- NOTE | 2017-12-26 07:45 | DISCHARGE SUMMARY ---
CHIEF COMPLAINT: Right knee pain. HISTORY OF PRESENT ILLNESS: A 77-year-old female admitted for elective right total knee replacement. Hospital course has been uneventful. PAST MEDICAL HISTORY: Remarkable for hypertension, hypercholesterolemia, heart disease, adrenal gland dysfunction, osteoarthritis, chronic back pain, GERD, obesity, vitamin B12, history of squamous cell carcinoma. PAST SURGICAL HISTORY: Include colonoscopies, D and Cs, tonsillectomy, cataract surgery, mandibular grafting, total knee arthroplasty in 2009. Heart catheterization with drug-eluting stent in 2006, repeat catheterization in 2008. FAMILY HISTORY: Remarkable for cancer, diabetes, heart disease, stroke. SOCIAL HISTORY: Reveals she is retired. No tobacco or alcohol use. ALLERGIES: INCLUDE AMOXICILLIN, AUGMENTIN, AZITHROMYCIN, FOSAMAX, WHICH CAUSES DIARRHEA ONLY. PREADMISSION MEDICATIONS: Include amlodipine, aspirin 81 mg, atorvastatin, beclomethasone, calcium with vitamin D, Nexium, losartan, metoprolol, MetroCream, multivitamin, nitroglycerin p.r.n., Systane eyedrops, Pataday eyedrops, Zantac, CoQ10. She recently decreased her blood pressure medications, her metoprolol dose and her lisinopril. REVIEW OF SYSTEMS: Reveals no chest pain, shortness of breath, fever, chills, nausea, vomiting or headache. HOSPITAL COURSE: Has been uneventful. She has done well. She is ambulatory. She is voiding. She is putting full weight on her knee. Postop x-rays look good. Slight anterior notching based on the size; however, no other issues. ASSESSMENT: Overall, doing well. We will discharge today with home nursing. She is still unclear whether she wants to do home PT or outpatient PT. She will decide that after she gets home. Likely come to outpatient PT in a week. I told her that she really needs much for the first week. She can do it on her own. She has a set of exercises. Trying to keep the wound from being over exercised in the first 2 weeks. Will follow up in 2 weeks for staple removal. Discharge on 4 mg Coumadin if INR is 1.4 or less and 2 mg if INR is 1.5 or greater. Check INR on Saturday.
[2017-12-26] MEDS: FERROUS GLUCONATE 324 MG TAB PO SCH (08:07)
[2017-12-26 08:10] VITALS: BP 141/75; PULSE 59; TEMP 36.8; O2SAT 95
[2017-12-26] MEDS: QNASL INH SCH (08:16)
[2017-12-26] MEDS: DOCUSATE SODIUM 100 MG CAP PO SCH (08:16)
[2017-12-26] MEDS ORDERED: PANTOprazole SOD 40 MG TAB PO SCH (09:00)
[2017-12-26] MEDS ORDERED: MULTIVITAMIN TAB PO SCH (09:00)
--- NOTE | 2017-12-26 09:30 | Discharge Instructions ---
Discharge Instructions Date of Service Dec 25, 2017. Admission Reason for Admission: Right Knee Degenerative Joint Disease Discharge Discharge Diagnosis / Problem: Right knee s/p total knee replacement Discharge Goals Goal(s): Decrease discomfort, Improve function, Increase independence Activity Recommendations Activity Limitations: as noted below Lifting Limitations: gradually increase as tolerated Exercise/Sports Limitations: until after follow-up appointment Shower/Bathe: keep incision dry Driving or Machine Use: No driving until cleared by Dr. Ortega Weightbearing Status: Right weightbearing (as tolerated) . Instructions / Follow-Up Instructions / Follow-Up New Medicine: * You will likely be taking one or more of these medications: 1. Percocet - Take, as directed, when you need it, every four to six hours to control your pain. 2. Coumadin - Thins your blood to lessen the chance of forming a blood clot. The dose of this is different for each person and is based on your blood tests that are done twice a week. * The most common side effects of pain medicine and iron are nausea and constipation. If nausea or constipation is too much of a problem or if you have any questions about your new medicines or doses, call [facility] at . We will try to help you manage these issues. VERY IMPORTANT TO READ AND REVIEW" Blood Clots and Blood Thinning Medicine: * You are given Coumadin during the immediate post-operative period to lessen the risk of blood clots forming in your legs and/or lungs. Coumadin is usually given for six weeks after surgery. * The prescription is for 2 mg tablets. At discharge, you should understand your dose and take it all at the same time every day, preferably after dinner. * You need to get your blood checked 1 - 2 times per week for six weeks or as directed. * If your dose needs to change, we will call you. Do not take your medication on the day of the blood test until we call you. Pain: * The immediate post-operative period after knee replacement surgery is often quite painful. * You are given a prescription for pain medicine. You should take it, as directed, when you need it, especially before physical therapy and before going to bed. Pain that interferes with sleep is very common and can last several months. * You will likely need pain medicine for the first four to six weeks. It will not stop all of the pain. The pain will lessen and as you feel better, you may change to milder pain medicine such as Tylenol. * The most common side effects of pain medicine are nausea and constipation, so don't take more than you need. Physical Therapy: * You will have physical therapy two or three times each week for four to six weeks after your surgery in order to regain your knee range of motion and to retrain your knee to work properly. * It is just as important to make sure you are getting your knee perfectly straight as it is to regain your knee bend. * Taking a pain pill an hour before therapy can help you have a more productive and comfortable therapy session if needed. Home Exercise: * You were shown a series of exercises (heel props, heel slides, etc.) in the hospital. Do these exercises three to four times each day including the exercises you were shown in physical therapy. Walking: * Get up and walk several times each day. For the first four weeks, try not to stand or walk for more than one hour at a time. If you do stand or walk for more than one hour, you will not hurt anything, but your knee and leg will likely swell. * As you feel comfortable, you may change from the walker or crutches to a cane and then to independent walking. SELF CARE INSTRUCTIONS AFTER TOTAL KNEE REPLACEMENT A. You may need to continue a physical therapy program after discharge from the hospital. There are several options available to you. Your doctor will assist you in selecting the best one for you. 1. An out-patient facility 2 to 3 times a week for therapy or home therapy. 2. Continue working on all exercises taught to you in the hospital. Your goals should be to increase bending of your knee to 90 degrees and beyond and to fully straighten your knee. B. You may progress at your own pace from walking with a walker or crutches to a cane; then to no assistive devices. C. Make walking a part of your daily routine. Be up as much as comfortable with rest periods throughout the day. Rest with leg elevation is very important. Use the ice wrap frequently for the first 3-4 weeks. D. There are no restrictions on activities. You may ride in a car, shop, participate in medical billing associate and all social activities. E. Wear the long elastic stockings ([place] hose) 20 hours a day for six weeks after surgery. They can be removed several times a day for laundering and for a shower. F. Do not place a pillow behind your knee when resting. A pillow at your ankle is okay. VERY IMPORTANT TO READ AND REVIEW A. Take Coumadin, Aspirin or Lovenox (blood thinning medications) as directed by your doctor. If on Coumadin, have a pro-time (blood test) drawn according to your doctor's instructions. This will tell the doctor how well the Coumadin is thinning your blood. 1. YOU WILL BE GIVEN AN ORDER AT DISCHARGE FOR PT/INR (BLOOD WORK). PLEASE HAVE THIS DONE INSTRUCTED. PLEASE CALL OUR OFFICE AFTER YOUR BLOODWORK IS COMPLETE SO WE CAN TRACK YOUR RESULTS. IF YOU ARE GOING TO OUTPATIENT PHYSICAL THERAPY, YOU WILL NEED TO GO TO OUTPATIENT TESTING TO HAVE IT DRAWN. B. There are a few signs you need to watch for after you are home. Call [facility] if you notice any of the followin. Increased severe knee pain. Some pain is expected especially when you exercise. 2. Increased swelling in your leg or knee; pain or swelling of the calf muscle in either lower leg. 3. Any fluid drainage from the incision. 4. Shortness of breath or chest pain. C. Please call [facility] at if you have any concerns or questions about your operation or recovery. The doctor or his nurse will return your call promptly. D. You must take antibiotics before dental work, bladder, bowel or other surgery. Call the office to obtain a prescription at least 2 days prior to your appointment. * CALL IF INCREASED PAIN, REDNESS, DRAINAGE OR FEVER GREATER THAT 101. * Sutures should be removed 12-14 days after surgery unless you are on chronic steriods, then it will be 14-18 days after surgery. Call your doctor if: * Temperature above 101 degrees F. * Pain not relieved by pain medicine ordered. * Increased drainage or redness from incision. * Notify your doctor with any questions or concerns. Current Hospital Diet Patient's current hospital diet: Regular Diet Discharge Diet Recommended Diet: Regular Diet Procedures Procedures Performed: Right Total Knee Arthroplasty Pending Studies Studies pending at discharge: no Medical Emergencies . Who to Call and When: Medical Emergencies: If at any time you feel your situation is an emergency, please call 911 immediately. . Non-Emergent Contact Non-Emergency issues call your: Primary Care Provider, Surgeon Call Non-Emergent contact if: temperature is above 101, wound has increased drainage, wound has increased redness, wound has increased pain, you have any medication questions . "Provider Documentation" section prepared by Dre Rasheed PA-C. . [place] Drug Monitoring Program Search Results: no issues identified
[2017-12-26] MEDS ORDERED: WARFARIN SOD 5 MG TAB PO ONE (10:00)
[2017-12-26 11:32] VITALS: BP 129/67; PULSE 71; TEMP 36.7; O2SAT 96
--- NOTE | 2017-12-26 14:20 | Anesthesiology Progress Note ---
Anesthesia Post Op Note Date & Time Dec 26, 2017 at 14:20 Vital Signs Pain Intensity: 0.0 Vital Signs Past 12 Hours Date Time Temp Pulse Resp B/P (MAP) Pulse Ox O2 Delivery O2 Flow Rate FiO2 12/26/17 11:32 36.7 71 18 129/67 (87) 96 Room Air 12/26/17 11:09 36.8 59 16 95 Room Air 12/26/17 08:10 36.8 59 16 141/75 (97) 95 Room Air 12/26/17 07:45 Room Air 12/26/17 03:00 36.6 74 16 122/66 (84) 94 Room Air Notes Mental Status: alert / awake / arousable, participated in evaluation Pt Amnestic to Procedure: Yes Nausea / Vomiting: adequately controlled Pain: adequately controlled Airway Patency, RR, SpO2: stable & adequate BP & HR: stable & adequate Hydration State: stable & adequate Neuraxial Anesthesia: sensory block resolved Anesthetic Complications: no major complications apparent
--- NOTE | 2017-12-26 17:40 | [facility] Operative Report ---
Operative Report Operative Date Dec 26, 2017. Pre-Operative Diagnosis Right Knee End-Stage Degenerative Joint Disease Post-Operative Diagnosis Right Knee End-Stage Degenerative Joint Disease Procedure(s) Performed Right Total Knee Arthroplasty Surgeon Dr. Ortega Master [employer] Parach[employer]ist Surgeon(s) Dr. Enoc Magaña (Fellow)/MELISA Murray Estimated Blood Loss 25 ml Findings Right knee DJD Fluids 1200cc Specimens A. Right Knee Bone and Tissue Drains None Anesthesia Type MAC Spinal Regional Complication(s) none Disposition no Recovery Room / PACU Indications This 77-year-old white female presented to the office with complaints of long- standing right knee pain. She had tried conservative care measures including oral anti-inflammatories, activity modification, and Visco supplementation without lasting relief. She elected to proceed with surgical intervention after being educated about potential risks and outcomes. Preoperative imaging was obtained. Description of Procedure Patient was administered a spinal anesthetic and then taken to the operating room where she was given sedation. She was prepped and draped in usual sterile fashion. Please see Dr. Ortega's operative report for specifics of the procedure. I was present for the entire case from initial patient positioning through final wound closure. Assistance was provided in tissue retraction, hemostasis, trial implant placement, final implant placement, and final wound closure. Patient was taken to the recovery room in satisfactory condition. I attest to the content of the Intraoperative Record and any orders documented therein. Any exceptions are noted below.
== END 2017-12-26 14:45 | disposition home health service (06) | DRG 470 ==
LOC: C.ACU 04:59 → C.3E 06:15 → ENRESERV 08:49
PROVIDERS: ADMIT Physical Medicine & Rehabilitation Sports Medicine; ATTEND Physical Medicine & Rehabilitation Sports Medicine
PROC: 0SRC0J9 Replacement of Right Knee Joint with Synthetic Substitute, Cemented, Open Approach (ICD-10-PCS; principal; 2017-12-25 07:00)
DX: M17.11 Unilateral primary osteoarthritis, right knee (principal); I10 Essential (primary) hypertension; E78.00 Pure hypercholesterolemia, unspecified; K21.9 Gastro-esophageal reflux disease without esophagitis; J45.909 Unspecified asthma, uncomplicated; E66.9 Obesity, unspecified; Z79.82 Long term (current) use of aspirin; Z79.899 Other long term (current) drug therapy; Z88.1 Allergy status to other antibiotic agents; Z88.8 Allergy status to other drugs, medicaments and biological substances; Z68.33 Body mass index [BMI] 33.0-33.9, adult

== ENCOUNTER → 2018-01-02 | Outpatient (CLI) | payer BC, OTHER ==
[~2018-01-02] MED LIST changes: -COEN1CAP32 PO; -LOSA100T65 PO; -MULT-188 PO; +OXYC-57 PO; +WARF2TAB PO
[2018-01-02 10:53] LABS: INR 3.5 (0.9-1.1)
--- NOTE | 2018-01-10 09:06 | CODING QUERY NO DIAGNOSIS ---
Valid Physician Order Needed A valid physician order must be submitted in order to properly bill for the service(s) provided, including date of service(s), valid diagnosis, and physician signature. If these tests are done on a recurring basis the original physician order must be submitted in order to code and bill for the service(s) provided. Please fax us the original, signed physician order so that we may expedite billing to [phone] DOS 01/02/2018 * Prothrombin Time Thank you Tete Correa [facility] Information Management
== END | disposition home or self-care (01) ==
LOC: C.LABSPEC 10:16
PROVIDERS: ATTEND Physical Medicine & Rehabilitation Sports Medicine
DX: Z01.89 Encounter for other specified special examinations (principal)

== ENCOUNTER → 2018-01-13 | Outpatient (CLI) | payer BC, OTHER ==
[2018-01-13 11:08] LABS: INR 1.2 (0.9-1.1)
== END | disposition home or self-care (01) ==
LOC: C.LABBC 07:51
PROVIDERS: ATTEND Physician Assistant
DX: Z96.651 Presence of right artificial knee joint (principal); Z51.81 Encounter for therapeutic drug level monitoring